=== PATIENT | female | born 1990 | race Caucasian/White ===

== ENCOUNTER 2017-05-22 11:06 | Outpatient (CLI) | payer BC ==
[~2017-05-22] VITALS: Ht 157.5 cm; Wt 73.9 kg
[2017-05-22 11:30] VITALS: BP 134/75
[2017-05-22 11:34] LABS: BASOPHILS # (AUTO) 0.1 10^3/uL (0.0-0.1); BASOPHILS % (AUTO) 1 % (0-10); EOSINOPHILS # (AUTO) 0.4 10^3/uL (0.0-0.3); EOSINOPHILS % (AUTO) 5 % (0-10); LYMPHOCYTES % (AUTO) 24 % (12-44); MEAN CORPUSCULAR HEMOGLOBIN 30 PG (25-34); MEAN CORPUSCULAR HGB CONC 33 G/DL (32-36); MEAN CORPUSCULAR VOLUME 91 FL (80-99); MEAN PLATELET VOLUME 9.2 FL (7.4-10.4); MONOCYTES # (AUTO) 0.6 X 10^3 (0.0-1.0); MONOCYTES % (AUTO) 8 % (0-12); NEUTROPHILS # (AUTO) 5.4 X 10^3 (1.8-7.8); NEUTROPHILS % (AUTO) 63 % (42-75); PLATELET COUNT 456 10^3/uL (130-400); RED BLOOD COUNT 4.01 10^6/uL (4.35-5.85); RED CELL DISTRIBUTION WIDTH 12.9 % (10.0-14.5); WHITE BLOOD COUNT 8.6 10^3/uL (4.3-11.0)
== END 2017-05-22 11:30 | disposition home or self-care (01) ==
LOC: PREOP 11:06
PROVIDERS: ATTEND Orthopaedic Surgery Orthopaedic Surgery of the Spine
DX: Z01.812 Encounter for preprocedural laboratory examination (principal); Z11.2 Encounter for screening for other bacterial diseases; M40.205 Unspecified kyphosis, thoracolumbar region
CPT/HCPCS: 36415; 85025; 86850; 86900; 86901; 87081

== ENCOUNTER 2017-05-27 07:30 | Inpatient (IN) | payer BC ==
[2017-05-27] VITALS (14 sets, daily range): BP systolic 89–124; BP diastolic 31–95
[~2017-05-27] VITALS: Ht 157.5 cm; Wt 73.9 kg
[2017-05-27] MEDS ORDERED: SEVOFLURANE (ULTANE) 15 ML INHAL SOLN ONE ×13 (07:52→15:34)
[2017-05-27] MEDS ORDERED: fentaNYL INJECTION 250 MCG/5 ML AMP ONE (07:52)
[2017-05-27] MEDS ORDERED: ONDANSETRON 4 MG/2 ML (SDV) Z0FRAN ONE ×4 (07:52→15:34)
[2017-05-27] MEDS ORDERED: DEXAMETHASONE 10 MG/ML (DECADRON) 1 ML VIAL ONE (07:52)
[2017-05-27] MEDS ORDERED: ROCURONIUM 50 MG/5 ML (ZEMURON) VIAL IV ONE ×2 (07:52→11:25)
[2017-05-27] MEDS ORDERED: proPOfol 200 MG/20 ML (DIPRIVAN) VIAL IV ONE (07:52)
[2017-05-27] MEDS ORDERED: MIDAZOLAM 2 MG/2 ML (VERSED) VIAL ONE (07:52)
[2017-05-27] MEDS ORDERED: DEXMEDETOMIDINE 200 MCG/2 ML (PRECEDEX) VIAL IV ONE ×2 (07:52→12:06)
[2017-05-27] MEDS ORDERED: LIDOCAINE PF 2% 5 ML (XYLOCAINE) VIAL ONE (07:52)
[2017-05-27] MEDS ORDERED: ceFAZolin 2 GM/NS 50 ML IV ONE (08:00)
[2017-05-27] MEDS ORDERED: VANCOMYCIN 1000 MG/VIAL ONE (08:15)
[2017-05-27] MEDS ORDERED: GENTAMICIN 40 MG/ML 2 ML INJ SDV ONE ×2 (08:16→10:11)
[2017-05-27] MEDS ORDERED: SCOPOLAMINE 1.5 MG (TRANSDERM-SCOP) PATCH ONE (08:17)
[2017-05-27] MEDS ORDERED: FAMOTIDINE 20MG/2ML IV (PEPCID) ONE (08:18)
[2017-05-27] MEDS ORDERED: LACTATED RINGERS 1,000 ML IV PRN (08:24)
[2017-05-27] MEDS: LACTATED RINGERS 1,000 ML IV PRN ×3 (08:25→14:35)
[2017-05-27] MEDS ORDERED: ONDANSETRON 4 MG/2 ML (SDV) Z0FRAN IV ONE (08:30)
[2017-05-27] MEDS ORDERED: FAMOTIDINE 20MG/2ML IV (PEPCID) IV ONE (08:30)
[2017-05-27] MEDS ORDERED: SCOPOLAMINE 1.5 MG (TRANSDERM-SCOP) PATCH TOP ONE (08:30)
[2017-05-27] MEDS ORDERED: GENTAMICIN IV SCH (10:45)
[2017-05-27] MEDS ORDERED: NS IV SCH (10:45)
[2017-05-27] MEDS ORDERED: GENTAMICIN INJ (FOR COMPOUND) 0.1 MG in NS (IVPB) 100 ML IV ONE (10:45)
[2017-05-27] MEDS ORDERED: GENTAMICIN 40 MG/ML 2 ML INJ SDV IR ONE ×2 (11:15)
[2017-05-27] MEDS ORDERED: TRANEXAMIC ACID 100 MG/ML 10 ML INJECTION IV ONE (11:25)
[2017-05-27] MEDS ORDERED: NS (IVPB) 100 ML ONE (11:26)
[2017-05-27] MEDS ORDERED: NS (IVPB) 250 ML ONE (11:26)
[2017-05-27] MEDS ORDERED: ceFAZolin 1,000 MG (ANCEF) VIAL ONE (13:26)
[2017-05-27] MEDS ORDERED: ceFAZolin 1,000 MG (ANCEF) VIAL IV ONE (13:45)
[2017-05-27] MEDS ORDERED: morphine INJ 10 MG/ML 1ML (SYR OR VIAL) ONE (14:31)
--- NOTE | 2017-05-27 15:08 | Progress Note-Post Operative ---
Post-Operative Progess Note Surgeon (s)/Human Resources Hr Generalist (s) Surgeon BLANCA NYE MD Human Resources Hr Generalist: DAMIÁN Plata Pre-Operative Diagnosis Kyhosis Post-Operative Diagnosis Same Procedure & Operative Findings Date of Procedure 05/27/17 Procedure Performed/Findings T4-L2 PSF with T10 PSO and reconstruction Anesthesia Type GETA Estimated Blood Loss Estimated blood loss (mL): 310 Specimens/Packing Specimens Removed none BLANCA NYE MD May 27, 2017 3:08 pm
[2017-05-27] MEDS: morphine INJ 10 MG/ML 1ML (SYR OR VIAL) IVP PRN ×5 (16:00→21:31)
[2017-05-27] MEDS ORDERED: ONDANSETRON 4 MG/2 ML (SDV) Z0FRAN IVP PRN (16:15)
[2017-05-27] MEDS ORDERED: fentaNYL INJECTION 100 MCG/2 ML AMP IVP PRN (16:15)
[2017-05-27] MEDS ORDERED: PROMETHAZINE INJ 25 MG/ML (PHENERGAN) AMP IVP PRN (16:15)
[2017-05-27] MEDS ORDERED: HYDROmorphone (DILAUDID) 2 MG/ML VIAL IVP PRN (16:15)
[2017-05-27] MEDS: HYDROcodone/APAP 10 MG/325 MG (LORTAB) TAB PO PRN ×2 (17:20→22:23)
[2017-05-27] MEDS: NS IV 1000 ML 1,000 ML IV SCH (17:21)
[2017-05-27] MEDS ORDERED: NS IV 500 ML 500 ML IV ONE (18:00)
[2017-05-27] MEDS ORDERED: NS IV 500 ML 500 ML IV PRN (19:00)
[2017-05-27] MEDS ORDERED: INFLUENZA TRIvalent 2017-2018 0.5 ML/45 MCG SYR IM ONE (19:30)
[2017-05-27] MEDS ORDERED: ceFAZolin INJECTION 2,000 MG in NS (IVPB) 50 ML IV SCH (19:45)
--- NOTE | 2017-05-27 20:04 | Diagnostic Imaging Report ---
Clinical indication: Dr. Argueta performed T9 pedicle subtracter osteotomy with T4-L1 posterior spinal fusion. Exam: There is a total of 11 limited intraoperative x-ray images of the thoracolumbar spine region. Comparison: None. Findings and impression: There is posterior fusion hardware with bilateral spanning rods and pedicle screws spanning from the thoracic and upper lumbar region. There are degenerative vertebral body spurs. Please see surgeon's report for more detail. Fluoroscopy was provided for surgeons and a total of 46.2 seconds and 8.30 mGy was provided. Dictated by: Dictated on workstation # [id number]
[2017-05-27] MEDS: ceFAZolin 2 GM/NS 50 ML IV SCH (21:32)
[2017-05-27] MEDS: FAMOTIDINE 20 MG (PEPCID) TABLET PO SCH (21:37)
[2017-05-27] MEDS: DOCUSATE SODIUM 100 MG (COLACE) CAP PO SCH (21:37)
[2017-05-27] MEDS: BACITRACIN OINTMENT 28 GM TUBE TOP SCH (22:28)
[2017-05-28] VITALS (23 sets, daily range): BP systolic 92–125; BP diastolic 46–79
[2017-05-28] MEDS: morphine INJ 10 MG/ML 1ML (SYR OR VIAL) IVP PRN ×8 (00:37→20:23)
--- NOTE | 2017-05-28 01:43 | OPERATIVE REPORT ---
DATE OF SERVICE: 05/27/2017 PREOPERATIVE DIAGNOSIS: Progressive thoracic hyperkyphosis, sagittal involvement and Scheuermann's disease. POSTOPERATIVE DIAGNOSIS: Progressive thoracic hyperkyphosis, sagittal involvement and Scheuermann's disease. PROCEDURE PERFORMED: 1. Thoracic 4 to lumbar 2 posterior spinal fusion for deformity. 2. T10 pedicle subtraction osteotomy, 3-column osteotomy. 3. T4 to L2 posterior segmental pedicle screw instrumentation. 4. Autograft for spine surgery, local. 5. Allograft for spine surgery, morselized. DATE AND TIME OF SURGERY: Please see anesthesia record. IMPLANTS USED: K2M SARAH pedicle screw system with renata and rail construct, Medtronic MagniFuse bone graft. SURGEON: Blanca Argueta MD TRIMMER BUFFING WHEEL: AMINAH Plata ROLE OF BIODIESEL PROCESS CONTROL TECHNICIAN: Aid in retraction of the procedure, aid in implantation, instrumentation and wound closure. ANESTHESIA: General endotracheal. ESTIMATED BLOOD LOSS: 310 mL. INTRAVENOUS FLUIDS: Please see anesthesia record. ANTIBIOTICS: Ancef in repeated doses. COMPLICATIONS: None. SPECIMENS: None. INDICATIONS FOR PROCEDURE: The patient is a 27-year-old female with severe progressive thoracic kyphosis, pain, failed conservative therapy, desires operative treatment. DESCRIPTION OF PROCEDURE: The patient was taken to the preoperative holding area and brought back to the operative suite. After adequate induction of general anesthetic, preoperative antibiotics, placed on spinal monitoring. Carefully returned to prone on Harsh table, care with padding to all extremities, sterilely prepped and draped posterior spine. Spinal monitoring was performed throughout the procedure and stable. Initially, a T4-L1 with a T9 PSO was planned, but upon positioning, placement and visualization of the patient, the levels, her apex of her curve, it was felt that moving the PSO down one level to T10 would give a better correction and therefore the inferior instrumented level was moved down one level as well as the PSO. At this point, a full exposure from T4 to L2 had been performed, levels were confirmed and then instrumentation was placed sequentially at every level starting at L2 all the way up to T4 bypassing T10. Once all the instrumentation was in place, checked on imaging, neuromonitoring was stable, a temporary fixation renata was achieved. The posterior elements were removed and freed up at the upper and lower levels to allow for correction of her kyphosis and then at the T10 level, a complete 3-column wedge osteotomy removing the entire pedicle bilaterally and into the vertebral body was carried out. The bilateral temporary fixation rods were reduced and compression across the site allowing sufficient buckling of the dura and preventing any compression, which was monitored as the osteotomy is closed. [id number] contact of the posterior vertebral body was achieved and the right renata was switched out for a rail renata, which was only minimally kyphosed and put into place and then the temporary renata on the left was switched out for a titanium round renata and once it was in place, final locking and tightening of the construct was performed. Further compression and closure of the osteotomy site was achieved and a great overall reduction was achieved. Wound was copiously irrigated with pulse lavage irrigation was utilized with protection of the osteotomy site. Neuromonitoring stable throughout the procedure and then all the posterior elements were decorticated and then a combination of autograft local bone from the osteotomy site and the decompressions autograft bone dust from all of the procedure was packed initially posteriorly and posterolaterally and then MagniFuse bone was packed on tip of this and then a third titanium renata with a renata-to-renata connector was placed on the left side for additional support fixation with [address] Deep drain was placed. Wound was closed in layers. Neuromonitoring stable. The patient tolerated the procedure well and transferred to the recovery room. Job ID: [id number] DocumentID: [id number] Dictated Date: 05/27/2017 15:13:52 After School Program Teacher Date: 05/28/2017 00:59:51 Dictated By: BLANCA ARGUETA MD
[2017-05-28] MEDS: HYDROcodone/APAP 10 MG/325 MG (LORTAB) TAB PO PRN (02:11)
[2017-05-28] MEDS: ceFAZolin 2 GM/NS 50 ML IV SCH ×2 (04:21→12:03)
[2017-05-28] MEDS: NS IV 1000 ML 1,000 ML IV SCH ×2 (04:26→12:03)
[2017-05-28 05:08] LABS: BASOPHILS % (AUTO) 0 % (0-10); EOSINOPHILS % (AUTO) 0 % (0-10); LYMPHOCYTES % (AUTO) 8 % (12-44); MEAN CORPUSCULAR HEMOGLOBIN 30 PG (25-34); MEAN CORPUSCULAR HGB CONC 33 G/DL (32-36); MEAN CORPUSCULAR VOLUME 93 FL (80-99); MEAN PLATELET VOLUME 9.3 FL (7.4-10.4); MONOCYTES % (AUTO) 9 % (0-12); NEUTROPHILS # (AUTO) 19.8 X 10^3 (1.8-7.8); NEUTROPHILS % (AUTO) 83 % (42-75); PLATELET COUNT 436 10^3/uL (130-400); RED BLOOD COUNT 3.46 10^6/uL (4.35-5.85); RED CELL DISTRIBUTION WIDTH 12.8 % (10.0-14.5); WHITE BLOOD COUNT 23.8 10^3/uL (4.3-11.0)
[2017-05-28 05:28] LABS: ALANINE AMINOTRANSFERASE 17 U/L (0-55); ALBUMIN 3.3 GM/DL (3.2-4.5); ANION GAP 8 MMOL/L (5-14); ASPARTATE AMINO TRANSFERASE 36 U/L (5-34); BILIRUBIN,TOTAL 0.7 MG/DL (0.1-1.0); BLOOD UREA NITROGEN 8 MG/DL (7-18); BUN/CREATININE RATIO 12; CARBON DIOXIDE 23 MMOL/L (21-32); CHLORIDE 107 MMOL/L (98-107); CREATININE SERUM 0.67 MG/DL (0.60-1.30); GFR ESTIMATED > 60; GLUCOSE 103 MG/DL (70-105); MAGNESIUM 1.7 MG/DL (1.8-2.4); PHOSPHORUS 3.4 MG/DL (2.3-4.7); SODIUM 138 MMOL/L (135-145); TOTAL PROTEIN 5.8 GM/DL (6.4-8.2)
[2017-05-28] MEDS: POTASSIUM CL 10MEQ/50ML IVPB 50 ML IV SCH (06:00)
[2017-05-28] MEDS: MAGNESIUM 1 GM/100 ML IVPB 100 ML IV SCH ×3 (06:00→08:47)
[2017-05-28] MEDS: KCL 20 MEQ TAB (K-DUR) PO SCH (06:00)
--- NOTE | 2017-05-28 06:37 | Progress Note (SOAP) ---
Subjective Date Seen by Provider: May 28, 2017 Time Seen by Provider: 06:34 Subjective/Events-last exam Doing ok, pain control not lasting, gets uncomfortable. Legs ok, no other real complaints. present. Objective Exam Vital Signs Date Time Temp Pulse Resp B/P (MAP) Pulse Ox O2 Delivery O2 Flow Rate FiO2 05/28/17 04:00 96.8 67 11 102/51 (68) 100 Nasal Cannula 2.00 05/28/17 04:00 100 Nasal Cannula 2.00 05/28/17 03:00 74 12 101/58 (72) 100 Nasal Cannula 2.00 05/28/17 02:00 73 12 99/57 (71) 100 Nasal Cannula 2.00 05/28/17 01:00 73 11 100/49 (66) 100 Nasal Cannula 2.00 05/28/17 01:00 73 05/28/17 00:00 99.1 80 11 116/60 (78) 100 Nasal Cannula 2.00 05/28/17 00:00 100 Nasal Cannula 2.00 05/27/17 23:00 71 12 107/56 (73) 100 Nasal Cannula 2.00 05/27/17 22:00 64 11 115/56 (75) 100 Nasal Cannula 2.00 05/27/17 21:22 76 05/27/17 21:00 95 24 114/75 (88) 100 Nasal Cannula 2.00 05/27/17 20:00 100 Nasal Cannula 2.00 05/27/17 20:00 99.7 73 20 93/68 (76) 100 Nasal Cannula 2.00 05/27/17 19:00 76 12 102/58 (73) 100 Nasal Cannula 2.00 05/27/17 18:45 Nasal Cannula 2.00 05/27/17 18:30 53 13 103/58 (73) 100 OxyMask 10.00 05/27/17 18:00 55 7 104/84 (91) 100 OxyMask 10.00 05/27/17 17:45 55 15 89/65 (73) 100 OxyMask 10.00 05/27/17 17:30 66 16 100/31 (54) 100 OxyMask 10.00 05/27/17 17:15 83 16 95/46 (62) 100 OxyMask 10.00 05/27/17 17:01 93/50 (64) 05/27/17 17:00 63 11 89/65 (73) 100 OxyMask 10.00 05/27/17 16:45 OxyMask 10.00 05/27/17 16:40 58 14 106/95 (99) 100 OxyMask 10.00 05/27/17 08:36 98.7 89 18 124/74 (91) 100 Room Air I & O 05/28/17 07:00 Intake Total 3643 ml Output Total 1285 ml Balance 2358 ml Capillary Refill : General Appearance: Mild Distress HEENT: Moist Mucous Membranes Neck: Non Tender, Supple Respiratory: No Accessory Muscle Use, No Respiratory Distress Cardiovascular: Regular Rate, Rhythm, Normal Peripheral Pulses Gastrointestinal: non tender, soft Extremity: Normal Capillary Refill, Normal Inspection, No Calf Tenderness Neurologic/Psychiatric: Alert, Oriented x3, No Motor/Sensory Deficits Skin: Normal Color, Warm/Dry Other comments CXR Clear this am Results Lab Laboratory Tests 05/27/17 07:45: Urine Test NEGATIVE 05/28/17 04:30: White Blood Count 23.8H, Red Blood Count 3.46L, Hemoglobin 10.5L, Hematocrit 32L , Mean Corpuscular Volume 93, Mean Corpuscular Hemoglobin 30, Mean Corpuscular Hemoglobin Concent 33, Red Cell Distribution Width 12.8, Platelet Count 436H, Mean Platelet Volume 9.3, Neutrophils (%) (Auto) 83H, Lymphocytes (%) (Auto) 8L , Monocytes (%) (Auto) 9, Eosinophils (%) (Auto) 0, Basophils (%) (Auto) 0, Neutrophils # (Auto) 19.8H, Lymphocytes # (Auto) 2.0, Monocytes # (Auto) 2.0H, Eosinophils # (Auto) 0.0, Basophils # (Auto) 0.0, Sodium Level 138, Potassium Level 4.0, Chloride Level 107, Carbon Dioxide Level 23, Anion Gap 8, Blood Urea Nitrogen 8, Creatinine 0.67, Estimat Glomerular Filtration Rate > 60, BUN/ Creatinine Ratio 12, Glucose Level 103, Calcium Level 8.0L, Phosphorus Level 3.4 , Magnesium Level 1.7L, Total Bilirubin 0.7, Aspartate Amino Transf (AST/SGOT) 36H, Alanine Aminotransferase (ALT/SGPT) 17, Alkaline Phosphatase 26L, Total Protein 5.8L, Albumin 3.3 Assessment/Plan Assessment/Plan Assess & Plan/Chief Complaint Thoracic Hyperkyphosis Scheruman's kyphosis Hypomagnesemia Plan: Up with PT Pain control Replace Mg To Floor today Clinical Quality Measures DVT/VTE Risk/Contraindication: Risk Factor Score Per Nursin RFS Level Per Nursing on Admit: 4+=Very High BLANCA NYE MD May 28, 2017 06:37
[2017-05-28] MEDS: MULTIVIT W/MINERALS TAB (THERAGRAN M) PO SCH (07:19)
[2017-05-28] MEDS: FAMOTIDINE 20 MG (PEPCID) TABLET PO SCH ×2 (08:01→20:22)
[2017-05-28] MEDS: DOCUSATE SODIUM 100 MG (COLACE) CAP PO SCH ×2 (08:01→21:22)
[2017-05-28] MEDS: DIAZEPAM 5 MG (VALIUM) TABLET PO PRN ×2 (08:01→16:08)
[2017-05-28] MEDS: oxyCODONE/APAP 10/325MG (PERCOCET 10) TABLET PO PRN ×3 (08:01→16:08)
[2017-05-28] MEDS: ONDANSETRON 4 MG/2 ML (SDV) Z0FRAN IV PRN ×2 (09:21→14:05)
--- NOTE | 2017-05-28 09:22 | Diagnostic Imaging Report ---
EXAMINATION: Portable upright radiograph of the chest. INDICATION: Post surgery for kyphosis. FINDINGS: There is posterior fixation with transpedicular screws and connecting rods involving the levels from T4 to L2. There is no scoliosis identified. The heart size is normal. The lungs are clear. No effusion or pneumothorax. The mediastinum and sumi appear unremarkable. IMPRESSION: Posterior fusion hardware appearing to involve the T4 to L2 levels. No cardiopulmonary process. Dictated by: Dictated on workstation # [id number]
--- NOTE | 2017-05-28 09:29 | Physical Therapy Evaluation ---
PT Evaluation-General Medical Diagnosis Admission Date May 27, 2017 at 07:40 Medical Diagnosis: s/p T4-L1 fusion; kyphotic correction Onset Date: May 27, 2017 Therapy Diagnosis Therapy Diagnosis: debility Height/Weight Height (Feet): 5 Height (Inches): 2.00 Weight (Pounds): 163 Weight (Ounces): 0.0 Precautions Precautions/Isolations: Fall Prevention, Standard Precautions Weight Bear Status Right Lower Extremity: Right Weight Bearing/Tolerated Left Lower Extremity: Left Weight Bearing/Tolerated Referral Reason for Referral: Evaluation/Treatment Medical History Reviewed History: Yes Social History Patient lives in home with supportive . Prior/Core FIM Prior Level of Function Functional Campbell Measure 0=Not Assessed/NA 4=Minimal Assistance 1=Total Assistance 5=Supervision or Setup 2=Maximal Assistance 6=Modified Campbell 3=Moderate Assistance 7=Complete Campbell Bed Mobility: 7 Transfers (B,C,W/C) (FIM): 7 Gait: 7 Locomotion: 7 PT Evaluation-Current Subjective Patient is alert in bed upon PT entering the room. Patient reports significant pain s/p T4-L1 fusion surgery yesterday. Patient complains of significant headaches and nausea with inset right before PT entered the room. Patient agrees to transferring to the chair from the bed. Pain Numeric Pain Scale: 10-Worst Possible Pain Location Body Site: Back Pain Description: Acute Comment: Pain rating determined by patient expression Pt/Family Goals Patient wishes to return to normal function. Objective Patient Orientation: Normal For Age Problem Solving: Good Attachments: Oxygen, Carballo Catheter, IV 2.0 L of O2 ROM/Strength ROM Upper Extremities WNL ROM Lower Extremities WNL Strength Upper Extremities not assessed due to pain s/p back surgery Strength Lower Extremities not assessed due to pain s/p back surgery Integumentary/Posture Integumentary intact Bowel Incontinence: No Bladder Incontinence: Carballo Cath Posture kyphotic posture seems to have significant corrections when compared to status before surgery Neuromuscular (Tone, Coordination, Reflexes) normal Sensory Vision: Wears Glasses Hearing: Functional Sensation Right Upper Extremit: Intact Sensation Left Upper Extremity: Intact Sensation Right Lower Extremit: Intact Sensation Left Lower Extremity: Intact Transfers Functional [place] Measure 0=Not Assessed/NA 4=Minimal Assistance 1=Total Assistance 5=Supervision or Setup 2=Maximal Assistance 6=Modified [place] 3=Moderate Assistance 7=Complete Campbell Transfers (B, C, W/C) (FIM): 3 Scootin Supine to/from Sit: 3 Sit to/from Stand: 4 Patient required close CGA to mod assist with bed mobility. Mod assist required with turning when rising to sit. Gait Mode of Locomotion: Walk Anticipated Mode of Locomotion: Walk Gait (FIM): 1 Distance (FIM): 1=up to 49 ft Distance: 5' Gait Level of Assist: 5 Gait Assistive Device: FWW Balance Sitting Static: Normal Sitting Dynamic: Normal Standing Static: Normal Standing Dynamic: Fair Assessment/Needs Patient transferred from bed to chair well considering recent spinal fusion. PT will continue to work on transfers, education, and proceed to increase in gait interventions as patient pain tolerance allows. Rehab Potential: Good PT Retirement Goals Java Groovy Developer Goals PT Retirement Goals Time Frame: Jun 14, 2017 Transfers (B,C,W/C) (FIM): 4 Gait (FIM): 3 Gait distance (FIM): 3=150 ft Distance: 150' Gait Level of Assist: 5 Gait Assistive Device: FWW PT Plan Problem List Problem List: Activity Tolerance, Functional Strength, Safety, Balance, Gait, Transfer, Bed Mobility, ROM Treatment/Plan Treatment Plan: Continue Plan of Care Treatment Plan: Bed Mobility, Education, Functional Activity Teodora, Functional Strength, Gait, Safety, Therapeutic Exercise, Transfers Treatment Duration: Jun 14, 2017 Frequency: 11 times per week Estimated Hrs Per Day: .5 hour per day Patient and/or Family Agrees t: Yes Safety Risks/Education Patient Education: Gait Training, Transfer Techniques, Reviewed Precautions, Correct Positioning, Safety Issues Teaching Recipient: Patient Teaching Methods: Demonstration, Discussion Response to Teaching: Verbalize Understanding, Return Demonstration Discharge Recommendations Therapy D/C Recommendations: Home w/ Family Support Equpiment Recommendations-D/C: Front Wheeled Walker Time/GCodes Time In: 900 Time Out: 915 Total Billed Treatment Time: 15 Total Billed Treatment 1 visit EVHigh 15 min CORINE JOSHUA PT May 28, 2017 09:29
--- NOTE | 2017-05-28 11:13 | Occupational Therapy Eval ---
OT Evaluation-General/PLF Medical Diagnosis Admission Date May 27, 2017 at 07:40 Medical Diagnosis: s/p T4-L1 fusion; kyphotic correction Onset Date: May 27, 2017 Therapy Diagnosis Therapy Diagnosis: decr self care, decr funct mobility, decr act harris Height/Weight Height (Feet): 5 Height (Inches): 2.00 Weight (Pounds): 163 Weight (Ounces): 0.0 Precautions Precautions/Isolations: Fall Prevention, Standard Precautions Safety Interventions: None Referral Physician: janel cruz Referral Reason: Evaluation/Treatment Medical History Additional Medical History Asthma as a child, R knee surgery x 3, GI disorders, Scheuermann's disease Current History T4-L2 PSF with ENRIQUETA, PSO and reconstruction Reviewed History: Yes Social History Current Living Status: Spouse ADL-Prior Level of Function ADL PLOF Comments Pt reported that she was able to manage all of her basic self care needs prior to surgery. 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 She still drives. 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 Pt rated back pain 6/10 but did not describe pain. Said that raising her ams increased back pain Appearance Alert, cooperative Mental Status/Objective Attachments: Central Line, Carballo Catheter, IV, Oxygen, Telemetry Current Glasses/Contacts: Yes Upper Extremity ROM Did not test due to pt reports of increased pain with arm movements. Bilat arms were resting on pillows Upper Extremity Sensation Pt reported she had some problems with numbness in R hand but it has not been a problem since surgery Upper Extremity Strength Did not test due to pt report of pain from moving arms ADL-Treatment ADL-Current Pt reported she has been able to feed herself. Up out of bed for first time this morning. Pt reported that she will be getting fitted for back brace today. Functional [place] Measure 0=Not Assessed/NA 4=Minimal Assistance 1=Total Assistance 5=Supervision or Setup 2=Maximal Assistance 6=Modified [place] 3=Moderate Assistance 7=Complete IndependenceIRFPAI Quality Coding Scale 6 Independent with activity with or without an assistive device 5 Patient requires set up or clean up by helper. Patient completes activity by themselves 4 Supervision or touching assist (CGA). [place] provide cues , steadying assist 3 The helper provides less than half the effort to complete the activity 2 The helper provides more than half the effort to complete the activity 1 Dependent. The helper does all the effort to complete an activity 7 Patient refused to complete or attempt activity 9 The patient did not perform the activity before the current illness or injury 88 Not attempted due to Medical conditions or safety concerns Discussed benefits of using bedside commode, chairs with arms, shower bench/ chair with pt and her Education OT Patient Education: Purpose of tx/functional activities, Rehab process, Use of adapted equipment Teaching Recipient: Patient, Significant Other Teaching Methods: Discussion Response to Teaching: Verbalize Understanding OT Retirement Goals Auto Hiker Goals Time Frame: Jun 04, 2017 Eating (FIM): 7 Grooming(FIM): 6 Bathing(FIM): 5 Upper Body Dressing(FIM): 5 Lower Body Dressing(FIM): 5 Toileting(FIM): 6 Toilet/Commode Transfer(FIM): 6 Shower Transfer(FIM): 5 Additional Goals: 1-Demonstrate ADL Tasks, 2-Verbalize Understanding, 3- ImproveStrength/Teodora 1=Demonstrate adherence to instructed precautions during ADL tasks. 2=Patient will verbalize/demonstrate understanding of assistive devices/ modifications for ADL. 3=Patient will improve strength/tolerance for activity to enable patient to perform ADL's. OT Education/Plan Problem List/Assessment Assessment: Decreased Activ Tolerance, Dependent Transfers, Impaired Bed Mobility, Impaired Self-Care Skills, Restricted Funct UE ROM Pt would benefit from skilled OT to increase her independence in basic self care to allow her to safely return to her home and to decrease caregiver burden Discharge Recommendations Plan/Recommendations: Continue POC Treatment Plan/Plan of Care Treatment,Training & Education: Yes Patient would benefit from OT for education, treatment and training to promote independence in ADL's, mobility, safety and/or upper extremity function for ADL' s. Plan of Care: ADL Retraining, Functional Mobility, UE Funct Exercise/Act Treatment Duration: Jun 04, 2017 Frequency: 5 times per week Estimated Hrs Per Day: .5 hour per day Agreement: Yes Rehab Potential: Good Time/GCodes Start Time: 10:35 Stop Time: 10:50 Total Time Billed (hr/min): 15 Billed Treatment Time visit, 15 minutes evaluation moderate intensity MAIRON MI OT May 28, 2017 11:13
[2017-05-28] MEDS: PROMETHAZINE 25 MG (PHENERGAN) TAB PO PRN (12:02)
[2017-05-28] MEDS: oxyCODONE ER 15 MG (oxyCONTIN CR) TAB PO SCH ×2 (14:05→21:22)
--- NOTE | 2017-05-28 14:06 | Anesthesia-General Post-Op ---
General Patient Condition Mental Status/LOC: Same as Preop Cardiovascular: Satisfactory Nausea/Vomiting: Absent Respiratory: Satisfactory Pain: Controlled Complications: Absent Post Op Complications Complications None Follow Up Care/Instructions Patient Instructions None needed. Anesthesia/Patient Condition Patient Condition Patient is doing well, no complaints, stable vital signs, no apparent adverse anesthesia problems. No complications reported per nursing. TOMY MCKEON CRNA May 28, 2017 14:06
--- NOTE | 2017-05-28 14:08 | Physical Therapy Daily Note ---
PT Daily Note-Current Subjective Patient reports she sat in the chair for a couple hours this a.m. and it has felt better off and on. She reports some bouts of nausea and dizziness. She states she is pretty sore, but is very agreeable to attempting to walk this p.m. Pain Numeric Pain Scale: 7 Location Body Site: Back Appearance Patient appears healthy. She is left with nurse seated in W/C post tx. Mental Status Patient Orientation: Normal For Age Attachments: Carballo Catheter, IV Transfers Functional [place] Measure 0=Not Assessed/NA 4=Minimal Assistance 1=Total Assistance 5=Supervision or Setup 2=Maximal Assistance 6=Modified [place] 3=Moderate Assistance 7=Complete IndependenceIRFPAI Quality Coding Scale 6 Independent with activity with or without an assistive device 5 Patient requires set up or clean up by helper. Patient completes activity by themselves 4 Supervision or touching assist (CGA). [place] provide cues , steadying assist 3 The helper provides less than half the effort to complete the activity 2 The helper provides more than half the effort to complete the activity 1 Dependent. The helper does all the effort to complete an activity 7 Patient refused to complete or attempt activity 9 The patient did not perform the activity before the current illness or injury 88 Not attempted due to Medical conditions or safety concerns Transfers (B, C, W/C) (FIM): 5 Scootin Rollin Supine to/from Sit: 5 Sit to/from Stand: 5 Patient was able to perform all bed mobility with SBA from PT. Patient is wearing a TLSO brace which she reports makes her feel much more stable. Weight Bearing Right Lower Extremity: Right Weight Bearing/Tolerated Left Lower Extremity: Left Weight Bearing/Tolerated Gait Training Gait (FIM): 1 Distance (FIM): 1=up to 49 ft Distance: 40' Gait Level of Assist: 4 Gait Persons Needed: 1 Gait Assistive Device: FWW Patient ambulates slowly with FWW. She takes intermittent stops due to pain and nausea with ambulation. Pt is CGA for safety due to patient's first time walking s/p back fusion. Assessment Current Status: Good Progress Patient is very agreeable to therapy on this date. She seems motivated to stand up and start ambulation again. PT will continue to progress walking and transfer techniques as well as implement therapeutic exercise that is applicable to this patient per her tolerance. PT Media Relations Intern Goals Media Relations Intern Goals PT Media Relations Intern Goals Time Frame: Jun 14, 2017 Transfers (B,C,W/C) (FIM): 4 Gait (FIM): 3 Gait distance (FIM): 3=150 ft Distance: 150' Gait Level of Assist: 5 Gait Assistive Device: FWW PT Plan Problem List Problem List: Activity Tolerance, Functional Strength, Safety, Balance, Gait, Transfer, Bed Mobility Treatment/Plan Treatment Plan: Continue Plan of Care Treatment Plan: Bed Mobility, Education, Functional Activity Teodora, Functional Strength, Gait, Safety, Therapeutic Exercise, Transfers Treatment Duration: Jun 14, 2017 Frequency: 11 times per week Estimated Hrs Per Day: .5 hour per day Patient and/or Family Agrees t: Yes Discharge Recommendations Therapy D/C Recommendations: Home w/ Family Support Equpiment Recommendations-D/C: Front Wheeled Walker Time/GCodes Time In: 1332 Time Out: 1350 Total Billed Treatment Time: 18 Total Billed Treatment 1 visit GT 18 min CORINE JOSHUA PT May 28, 2017 14:08
--- NOTE | 2017-05-28 14:40 | Consultation-Hospitalist ---
HPI History of Present Illness: HPI/Chief Complaint Pt is a 27yoCF with no past medical history who was admitted for spinal fusion for kyphosis. We are consulted for medical management following surgery. She reports pain from her surgery but controlled with pain medicine. She is up in chair at time of bed. She developed a headache with sitting up but improved with pain medicine. She has no complaints at this time. Source: patient Date Seen 05/28/17 Attending Physician Enrique Argueta MD PCP Ron London DO Referring Physician Kendall Date of Admission May 27, 2017 at 07:40 Home Medications & Allergies Home Medications Reviewed patient Home Medication Reconciliation Form Allergies Allergies Coded Allergies No Known Drug Allergies (Zlndpfwpcr04/29/17) Past Tsvmicm-Ymbjcp-Ohscbv Hx Patient Social History Marrital Status: Alcohol Use: Occasionally Uses Recreational Drug Use: No Smoking Status: Former Smoker Former Smoker, Quit: May 22, 2009 Type Used: Cigarettes Physical Abuse Screen: No Sexual Abuse: No Recent Foreign Travel: No Contact w/other who traveled: No Recent Hopitalizations: No Recent Infectious Disease Expo: No Seasonal Allergies Seasonal Allergies: Yes (at times) Surgeries Yes (c/s x3, rt knee sx x3) Section (x3) Respiratory Yes (asthma as a child) Cardiovascular No Neurological No Reproductive System : No Genitourinary No Gastrointestinal Yes Chronic Constipation Musculoskeletal Yes (kyphosis) Chronic Back Pain Endocrine History of Endocrine Disorders: No HEENT History of HEENT Disorders: Yes (glasses) Loss of Vision: Bilateral Hearing Impairment: Denies Cancer No Psychosocial History of Psychiatric Problem: No Integumentary History of Skin or Integumenta: No Blood Transfusions History of Blood Disorders: Yes (anemic during ) Family Medical History Significant Family History: No Pertinent Family Hx Family Hx: Patient reports no known family medical history. Review of Systems Constitutional: No chills, No fever EENTM: No blurred vision, No double vision, No nose congestion, No throat pain Respiratory: No cough, No dyspnea on exertion, No short of breath Cardiovascular: No chest pain, No edema, No palpitations Gastrointestinal: No abdominal pain, No constipation, No diarrhea, No nausea, No vomiting Genitourinary: No dysuria, No frequency Musculoskeletal: No joint pain, No muscle pain Skin: No lesions, No rash Psychiatric/Neurological: Denies Headache, Denies Numbness, Denies Tingling Physical Exam Physical Exam Vital Signs Vital Sign - Last 12Hours 05/27/17 05/27/17 08:36 16:40 Temp 98.7 Pulse 89 Resp 18 B/P (MAP) 124/74 (91) Pulse Ox 100 O2 Delivery Room Air O2 Flow Rate 10.00 Capillary Refill : General Appearance: No Apparent Distress, WD/WN HEENT: PERRL/EOMI, Moist Mucous Membranes Neck: Non Tender, Supple Respiratory: Lungs Clear, No Respiratory Distress Cardiovascular: No Murmur, Tachycardia Gastrointestinal: Normal Bowel Sounds, Non Tender, Soft Extremity: Normal Capillary Refill, No Calf Tenderness Neurologic/Psychiatric: Alert, Oriented x3, Normal Mood/Affect Skin: Normal Color, Warm/Dry Results Results/Procedures Lab Laboratory Tests 05/28/17 04:30 Assessment/Plan Admission Diagnosis s/p spinal fusion Diagnosis/Problems Diagnosis/Problems (1) Kyphosis Status: Chronic Assessment & Plan: s/p spinal fusion Management per Primary PT/OT Qualifiers: Qualified Codes: M40.209 - Unspecified kyphosis, site unspecified (2) Leukocytosis Status: Acute Assessment & Plan: Likely due to surgery No signs of infection Received prophylactic ancef Monitor closely (3) Normocytic anemia Assessment & Plan: likely due to acute blood loss form surgery Trend (4) Prophylactic measure Assessment & Plan: Saline lock Reg diet SCDS - lovenox when ok with primary Clinical Quality Measures DVT/VTE Risk/Contraindication: Risk Factor Score Per Nursin RFS Level Per Nursing on Admit: 4+=Very High ILDEFONSO DOW MD May 28, 2017 14:40
[2017-05-28] MEDS: BACITRACIN OINTMENT 28 GM TUBE TOP SCH ×2 (15:17→21:22)
--- NOTE | 2017-05-28 16:04 | Diagnostic Imaging Report ---
Exam: Standing scoliosis radiographs. Indication: Post infusion. Findings: There is transpedicular fusion screws with connecting rods seen involving T4 to L2 level with no remaining scoliosis seen. There is wedging deformity noted of multiple mid to lower thoracic spine levels, probably developmental. The paraspinal soft tissues appear unremarkable. Impression: Posterior fusion hardware involving T4 to L2 levels, in good alignment. No residual scoliosis. Dictated by: Dictated on workstation # [id number]
[2017-05-28] MEDS: BISACODYL 5 MG (DULCOLAX) TABLET PO PRN (20:26)
[2017-05-29] VITALS (22 sets, daily range): BP systolic 91–120; BP diastolic 42–89
[2017-05-29] MEDS: oxyCODONE/APAP 10/325MG (PERCOCET 10) TABLET PO PRN ×4 (00:02→15:06)
[2017-05-29] MEDS: DIAZEPAM 5 MG (VALIUM) TABLET PO PRN ×3 (00:02→16:21)
[2017-05-29] MEDS: morphine INJ 10 MG/ML 1ML (SYR OR VIAL) IVP PRN ×4 (04:31→16:21)
[2017-05-29 05:08] LABS: BASOPHILS # (AUTO) 0.1 10^3/uL (0.0-0.1); BASOPHILS % (AUTO) 0 % (0-10); EOSINOPHILS # (AUTO) 0.1 10^3/uL (0.0-0.3); EOSINOPHILS % (AUTO) 1 % (0-10); LYMPHOCYTES # (AUTO) 1.9 X 10^3 (1.0-4.0); LYMPHOCYTES % (AUTO) 9 % (12-44); MEAN CORPUSCULAR HEMOGLOBIN 30 PG (25-34); MEAN CORPUSCULAR HGB CONC 33 G/DL (32-36); MEAN CORPUSCULAR VOLUME 92 FL (80-99); MEAN PLATELET VOLUME 9.4 FL (7.4-10.4); MONOCYTES # (AUTO) 1.8 X 10^3 (0.0-1.0); MONOCYTES % (AUTO) 9 % (0-12); NEUTROPHILS # (AUTO) 16.5 X 10^3 (1.8-7.8); NEUTROPHILS % (AUTO) 81 % (42-75); PLATELET COUNT 412 10^3/uL (130-400); RED BLOOD COUNT 3.57 10^6/uL (4.35-5.85); RED CELL DISTRIBUTION WIDTH 13.1 % (10.0-14.5); WHITE BLOOD COUNT 20.4 10^3/uL (4.3-11.0)
[2017-05-29 05:26] LABS: ALANINE AMINOTRANSFERASE 24 U/L (0-55); ALBUMIN 3.3 GM/DL (3.2-4.5); ANION GAP 7 MMOL/L (5-14); ASPARTATE AMINO TRANSFERASE 43 U/L (5-34); BILIRUBIN,TOTAL 0.6 MG/DL (0.1-1.0); BLOOD UREA NITROGEN 4 MG/DL (7-18); BUN/CREATININE RATIO 6; CALCIUM 8.3 MG/DL (8.5-10.1); CARBON DIOXIDE 26 MMOL/L (21-32); CHLORIDE 105 MMOL/L (98-107); CREATININE SERUM 0.64 MG/DL (0.60-1.30); GFR ESTIMATED > 60; GLUCOSE 113 MG/DL (70-105); MAGNESIUM 2.1 MG/DL (1.8-2.4); POTASSIUM 3.9 MMOL/L (3.6-5.0); SODIUM 138 MMOL/L (135-145); TOTAL PROTEIN 6.3 GM/DL (6.4-8.2)
--- NOTE | 2017-05-29 06:01 | Progress Note (SOAP) ---
Subjective Date Seen by Provider: May 29, 2017 Time Seen by Provider: 05:58 Subjective/Events-last exam POD #2, s/p T4-L2 PSF with T10 PSO VSS, afebrile Complains of back pain. Review of Systems General: No Chills, No Fatigue Pulmonary: No Dyspnea, No Cough Cardiovascular: No: Chest Pain Gastrointestinal: No: Nausea, Vomiting, Abdominal Pain Musculoskeletal: back pain, No: leg pain Neurological: No: Weakness, Numbness, Confusion Objective Exam Vital Signs Date Time Temp Pulse Resp B/P (MAP) Pulse Ox O2 Delivery O2 Flow Rate FiO2 05/29/17 05:00 103 107/65 (79) 100 Nasal Cannula 2.00 05/29/17 04:00 99.2 98 116/59 (78) 100 Nasal Cannula 2.00 05/29/17 03:00 100 110/57 (74) 100 Nasal Cannula 2.00 05/29/17 02:00 105 96/64 (75) 99 Nasal Cannula 2.00 05/29/17 01:00 97 05/29/17 01:00 97 120/58 (78) 99 Nasal Cannula 2.00 05/29/17 00:00 100.3 111 114/69 (84) 100 Nasal Cannula 2.00 05/28/17 23:00 91 102/58 (73) 100 Nasal Cannula 2.00 05/28/17 22:00 93 117/72 (87) 100 Nasal Cannula 2.00 05/28/17 21:00 Room Air 05/28/17 21:00 106 99/51 (67) 99 Nasal Cannula 2.00 05/28/17 20:00 98.4 112 108/65 (79) 100 Nasal Cannula 2.00 05/28/17 19:00 110 05/28/17 19:00 110 92/60 (71) 96 Nasal Cannula 2.00 05/28/17 18:00 102 20 102/61 (75) 99 Nasal Cannula 2.00 05/28/17 17:00 106 19 123/48 (73) 100 Nasal Cannula 2.00 05/28/17 16:09 98.6 104 17 125/70 (88) 100 Nasal Cannula 2.00 05/28/17 15:00 107 20 100 Nasal Cannula 2.00 05/28/17 14:00 81 17 116/74 (88) 100 Nasal Cannula 2.00 05/28/17 13:00 75 16 95/46 (62) 100 Nasal Cannula 2.00 05/28/17 12:00 97.2 90 18 115/62 (79) 98 Nasal Cannula 2.00 05/28/17 11:26 98 23 114/75 (88) 100 Nasal Cannula 05/28/17 10:00 101 23 108/79 (89) 100 Room Air 05/28/17 09:00 110 11 120/76 (91) 100 Room Air 05/28/17 08:03 98.6 95 14 112/59 (76) 99 Room Air 05/28/17 08:00 Room Air 05/28/17 07:00 92 10 107/64 (78) 97 Nasal Cannula 2.00 05/28/17 07:00 94 05/28/17 06:00 99 12 112/57 (75) 100 Nasal Cannula 2.00 I & O 05/29/17 07:00 Intake Total 5391 ml Output Total 5025 ml Balance 366 ml Capillary Refill : General Appearance: Mild Distress HEENT: PERRL/EOMI Neck: Normal Inspection, Non Tender Respiratory: No Accessory Muscle Use, No Respiratory Distress Cardiovascular: No Edema, Normal Peripheral Pulses Gastrointestinal: non tender, soft Extremity: Normal Capillary Refill, Normal Inspection, Non Tender, No Calf Tenderness Neurologic/Psychiatric: Alert, Oriented x3, No Motor/Sensory Deficits, Normal Mood/Affect, physiotherapy assistant II-XII Norm as Tested, Other (BLE motor intact, NVI) Skin: Other (Dressing CDI) Results Lab Laboratory Tests 05/29/17 04:35: White Blood Count 20.4H, Red Blood Count 3.57L, Hemoglobin 10.8L, Hematocrit 33L , Mean Corpuscular Volume 92, Mean Corpuscular Hemoglobin 30, Mean Corpuscular Hemoglobin Concent 33, Red Cell Distribution Width 13.1, Platelet Count 412H, Mean Platelet Volume 9.4, Neutrophils (%) (Auto) 81H, Lymphocytes (%) (Auto) 9L , Monocytes (%) (Auto) 9, Eosinophils (%) (Auto) 1, Basophils (%) (Auto) 0, Neutrophils # (Auto) 16.5H, Lymphocytes # (Auto) 1.9, Monocytes # (Auto) 1.8H, Eosinophils # (Auto) 0.1, Basophils # (Auto) 0.1, Sodium Level 138, Potassium Level 3.9, Chloride Level 105, Carbon Dioxide Level 26, Anion Gap 7, Blood Urea Nitrogen 4L, Creatinine 0.64, Estimat Glomerular Filtration Rate > 60, BUN/ Creatinine Ratio 6, Glucose Level 113H, Calcium Level 8.3L, Phosphorus Level 2.0L, Magnesium Level 2.1, Total Bilirubin 0.6, Aspartate Amino Transf (AST/SGOT ) 43H, Alanine Aminotransferase (ALT/SGPT) 24, Alkaline Phosphatase 42, Total Protein 6.3L, Albumin 3.3 Assessment/Plan Assessment/Plan Assess & Plan/Chief Complaint Thoracic kyphosis with sagittal imbalance S/P T4-L2 PSF with T10 PSO Increase Oxycodone CR to 30 mg Continue to monitor labs and LINDA output Ambulate Clinical Quality Measures DVT/VTE Risk/Contraindication: Risk Factor Score Per Nursin RFS Level Per Nursing on Admit: 4+=Very High MANUEL CARO May 29, 2017 06:01
[2017-05-29] MEDS: POTASSIUM CL 10MEQ/50ML IVPB 50 ML IV SCH (06:07)
[2017-05-29] MEDS: MAGNESIUM 1 GM/100 ML IVPB 100 ML IV SCH (06:08)
[2017-05-29] MEDS: KCL 20 MEQ TAB (K-DUR) PO SCH (06:08)
[2017-05-29] MEDS: oxyCODONE ER 15 MG (oxyCONTIN CR) TAB PO SCH ×3 (07:33→22:12)
[2017-05-29] MEDS: MULTIVIT W/MINERALS TAB (THERAGRAN M) PO SCH (07:33)
--- NOTE | 2017-05-29 08:15 | Progress Note-Hospitalist ---
Subjective HPI/CC On Admission Date Seen by Provider: May 29, 2017 Time Seen by Provider: 07:50 Pt is a 27yoCF with no past medical history who was admitted for spinal fusion for kyphosis. We are consulted for medical management following surgery. She reports pain from her surgery but controlled with pain medicine. She is up in chair at time of bed. She developed a headache with sitting up but improved with pain medicine. She has no complaints at this time. Subjective/Events-last exam Pt reports pain is starting to improve. Sitting up in bed. Per RN had difficulty managing pain yesterday. Objective Exam Vital Signs Vital Sign - Last 12Hours 05/27/17 05/27/17 08:36 16:40 Temp 98.7 Pulse 89 Resp 18 B/P (MAP) 124/74 (91) Pulse Ox 100 O2 Delivery Room Air O2 Flow Rate 10.00 Capillary Refill : General Appearance: No Apparent Distress, WD/WN Respiratory: Lungs Clear, No Respiratory Distress Cardiovascular: Regular Rate, Rhythm, No Murmur Gastrointestinal: Normal Bowel Sounds, Non Tender, Soft Extremity: Non Tender, No Calf Tenderness Neurologic/Psychiatric: Alert, Oriented x3 Results/Procedures Lab Laboratory Tests 05/29/17 04:35 Assessment/Plan Assessment and Plan Assess & Plan/Chief Complaint kyphosis s/p spinal fusion Diagnosis/Problems Diagnosis/Problems (1) Kyphosis Status: Chronic Assessment & Plan: s/p spinal fusion Management per Primary PT/OT Oxycontin increased Morphine for breakthrough pain Qualifiers: Qualified Codes: M40.209 - Unspecified kyphosis, site unspecified (2) Leukocytosis Status: Acute Assessment & Plan: Likely due to surgery, improving No signs of infection Received prophylactic ancef Monitor closely (3) Normocytic anemia Assessment & Plan: likely due to acute blood loss form surgery Trend, up from yesterday (4) Prophylactic measure Assessment & Plan: Saline lock Reg diet SCDS - lovenox when ok with primary ILDEFONSO DOW MD May 29, 2017 8:14 am
[2017-05-29] MEDS: DOCUSATE SODIUM 100 MG (COLACE) CAP PO SCH ×2 (08:23→20:05)
[2017-05-29] MEDS: BISACODYL 5 MG (DULCOLAX) TABLET PO PRN ×2 (08:24→20:05)
[2017-05-29] MEDS: FAMOTIDINE 20 MG (PEPCID) TABLET PO SCH ×2 (08:24→20:04)
--- NOTE | 2017-05-29 09:02 | Diagnostic Imaging Report ---
INDICATION: Postop surgery for kyphosis. Frontal chest obtained at 5:22 a.m. is compared to yesterday. FINDINGS: Thoracolumbar spinal rods are again noted. There is no acute infiltrate or pneumothorax or pleural fluid. Heart is normal in size. IMPRESSION: Postop changes in the thoracolumbar spine. No acute process in the chest. Dictated by: Dictated on workstation # [id number]
[2017-05-29] MEDS: BACITRACIN OINTMENT 28 GM TUBE TOP SCH ×2 (09:05→22:11)
--- NOTE | 2017-05-29 10:18 | Physical Therapy Daily Note ---
PT Daily Note-Current Subjective Pt sitting in recliner upon arrival. Pt agrees to walking for PT. Pain Numeric Pain Scale: 10-Worst Possible Pain Location: Dorsal Location Body Site: Back Pain Description: Sharp Mental Status Patient Orientation: Person, Place, Time, Situation Attachments: Drains, Carballo Catheter, Other-See Comments (TLSO brace) Transfers Functional [place] Measure 0=Not Assessed/NA 4=Minimal Assistance 1=Total Assistance 5=Supervision or Setup 2=Maximal Assistance 6=Modified [place] 3=Moderate Assistance 7=Complete IndependenceIRFPAI Quality Coding Scale 6 Independent with activity with or without an assistive device 5 Patient requires set up or clean up by helper. Patient completes activity by themselves 4 Supervision or touching assist (CGA). [place] provide cues , steadying assist 3 The helper provides less than half the effort to complete the activity 2 The helper provides more than half the effort to complete the activity 1 Dependent. The helper does all the effort to complete an activity 7 Patient refused to complete or attempt activity 9 The patient did not perform the activity before the current illness or injury 88 Not attempted due to Medical conditions or safety concerns Scootin Rollin Supine to/from Sit: 5 Sit to/from Stand: 5 Weight Bearing Right Lower Extremity: Right Weight Bearing/Tolerated Left Lower Extremity: Left Weight Bearing/Tolerated Gait Training Distance (FIM): 3=150 ft Distance: 150' Gait Level of Assist: 5 Gait Persons Needed: 1 Gait Assistive Device: FWW Pt's gait is slow but steady. Pt's step length increases during ambulation. Pt 's pain increases with ambulation. Treatments Pt transfers from recliner to standing using FWW at SBA. Pt ambulates to Nurse' s Station and back to room using FWW at close SBA. Pt returns to room to rest Supine in bed with head raised at end of tx with all needs met. Assessment Current Status: Good Progress Pt reports pain starts at around 7/10 but will increase to 10/10 with ambulation. Pt is very motivated to get home to kids. Pt's pushes through the pain during ambulation knowing it will make her better. PT Sewer Pipe Press Operator Goals Sewer Pipe Press Operator Goals PT Residential Goals Time Frame: Jun 14, 2017 Transfers (B,C,W/C) (FIM): 4 Gait (FIM): 3 Gait distance (FIM): 3=150 ft Distance: 150' Gait Level of Assist: 5 Gait Assistive Device: FWW PT Plan Problem List Problem List: Activity Tolerance, Functional Strength, Safety, Balance, Gait Treatment/Plan Treatment Plan: Continue Plan of Care Treatment Plan: Bed Mobility, Education, Functional Activity Teodora, Functional Strength, Gait, Safety, Therapeutic Exercise, Transfers Treatment Duration: Jun 14, 2017 Frequency: 11 times per week Estimated Hrs Per Day: .5 hour per day Patient and/or Family Agrees t: Yes Safety Risks/Education Patient Education: Gait Training, Correct Positioning, Safety Issues Teaching Recipient: Patient Teaching Methods: Discussion Response to Teaching: Verbalize Understanding Time/GCodes Time In: 940 Time Out: 1005 Total Billed Treatment Time: 25 Total Billed Treatment 1, GT x2 (25m) LUIS MITCHELL PTA May 29, 2017 10:18
[2017-05-29] MEDS ORDERED: SODIUM PHOSPHATE INJ 15 MM in NS (IVPB) 100 ML IV NR (11:15)
[2017-05-29] MEDS: diphenhydrAMINE 25 MG TAB (BENADRYL) PO PRN (13:42)
--- NOTE | 2017-05-29 13:42 | Occupational Ther Daily Note ---
OT Current Status-Daily Note Subjective Pt agreeable to treatment this pm. Mental Status/Objective Functional [place] Measure 0=Not Assessed/NA 4=Minimal Assistance 1=Total Assistance 5=Supervision or Setup 2=Maximal Assistance 6=Modified [place] 3=Moderate Assistance 7=Complete [place] Attachments: Drains, Carballo Catheter, IV, Oxygen, Other-See Comments (TLSO) ADL-Treatment Pt sitting EOB with RN present when therapist arrives. Pt sit to stand and transfer to chair with SBA with slow movements using FWW. Pt wearing TLSO. Education provided regarding ADL completion. and back precautions. Pt instructed in use of adaptive equipment for LE dressing. Pt states she has a rehab specialist at home. Pt used rehab specialist to doff sock with verbal cues for technique. Pt donned socks with SBA using sock aid. Pt has questions regarding toileting completion. Education provided regarding toileting aid. Pt states understanding of all education and does not have any questions at this time. Pt states spouse has taken three weeks off to be at home with her, but she wants to be as independent as possible. Will continue ADL training in future sessions. Pt sitting in chair with needs met and spouse present after session. OT Short Term Goals Short Term Goals 1=Demonstrate adherence to instructed precautions during ADL tasks. 2=Patient will verbalize/demonstrate understanding of assistive devices/ modifications for ADL. 3=Patient will improve strength/tolerance for activity to enable patient to perform ADL's. OT Mud Analysis Well Logging Captain Goals Mud Analysis Well Logging Captain Goals Time Frame: Jun 04, 2017 Eating (FIM): 7 Grooming(FIM): 6 Bathing(FIM): 5 Upper Body Dressing(FIM): 5 Lower Body Dressing(FIM): 5 Toileting(FIM): 6 Toilet/Commode Transfer(FIM): 6 Shower Transfer(FIM): 5 Additional Goals: 1-Demonstrate ADL Tasks, 2-Verbalize Understanding, 3- ImproveStrength/Teodora 1=Demonstrate adherence to instructed precautions during ADL tasks. 2=Patient will verbalize/demonstrate understanding of assistive devices/ modifications for ADL. 3=Patient will improve strength/tolerance for activity to enable patient to perform ADL's. OT Education/Plan Problem List/Assessment Pt would benefit from skilled OT to increase her independence in basic self care to allow her to safely return to her home and to decrease caregiver burden Discharge Recommendations Plan/Recommendations: Continue POC Treatment Plan/Plan of Care Patient would benefit from OT for education, treatment and training to promote independence in ADL's, mobility, safety and/or upper extremity function for ADL' s. Plan of Care: ADL Retraining, Functional Mobility, UE Funct Exercise/Act Treatment Duration: Jun 04, 2017 Frequency: 5 times per week Estimated Hrs Per Day: .5 hour per day Agreement: Yes Rehab Potential: Good Time/GCodes Start Time: 13:10 Stop Time: 13:25 Total Time Billed (hr/min): 15 Billed Treatment Time 1 visit, ADL(15minutes) YAZ OSCAR OT May 29, 2017 13:42
--- NOTE | 2017-05-29 15:25 | Physical Therapy Daily Note ---
PT Daily Note-Current Subjective Pt sitting in recliner upon arrival. Pt agrees to walking for PT. Pain Numeric Pain Scale: 10-Worst Possible Pain Location: Dorsal Location Body Site: Back Pain Description: Sharp Mental Status Patient Orientation: Person, Place, Time, Situation Attachments: Drains, Carballo Catheter, Other-See Comments (TLSO brace), IV Transfers Functional [place] Measure 0=Not Assessed/NA 4=Minimal Assistance 1=Total Assistance 5=Supervision or Setup 2=Maximal Assistance 6=Modified [place] 3=Moderate Assistance 7=Complete IndependenceIRFPAI Quality Coding Scale 6 Independent with activity with or without an assistive device 5 Patient requires set up or clean up by helper. Patient completes activity by themselves 4 Supervision or touching assist (CGA). [place] provide cues , steadying assist 3 The helper provides less than half the effort to complete the activity 2 The helper provides more than half the effort to complete the activity 1 Dependent. The helper does all the effort to complete an activity 7 Patient refused to complete or attempt activity 9 The patient did not perform the activity before the current illness or injury 88 Not attempted due to Medical conditions or safety concerns Scootin Supine to/from Sit: 5 Sit to/from Stand: 5 Weight Bearing Right Lower Extremity: Right Weight Bearing/Tolerated Left Lower Extremity: Left Weight Bearing/Tolerated Gait Training Distance (FIM): 3=150 ft Distance: 150' Gait Level of Assist: 5 Gait Persons Needed: 1 Gait Assistive Device: FWW Pt has slow but steady gait pattern, no LOB. Pt's frederic is a little faster, more fluid than this morning. Treatments Pt transfers from recliner to standing using FWW at close SBA. Pt ambulates in hallway using FWW at close SBA. Pt returns to room to rest in bed. Pt transfers from standing to EOB to Supine at SBA. Pt rests at end of tx with all needs met. Assessment Current Status: Good Progress Pt is continuing to stay motivated and wants to get home to her kids. Pt's frederic is a little faster. PT Alteration Worker Goals Alteration Worker Goals PT Alteration Worker Goals Time Frame: Jun 14, 2017 Transfers (B,C,W/C) (FIM): 4 Gait (FIM): 3 Gait distance (FIM): 3=150 ft Distance: 150' Gait Level of Assist: 5 Gait Assistive Device: FWW PT Plan Problem List Problem List: Activity Tolerance, Functional Strength, Safety, Balance, Gait, Transfer Treatment/Plan Treatment Plan: Continue Plan of Care Treatment Plan: Bed Mobility, Education, Functional Activity Teodora, Functional Strength, Gait, Safety, Therapeutic Exercise, Transfers Treatment Duration: Jun 14, 2017 Frequency: 11 times per week Estimated Hrs Per Day: .5 hour per day Patient and/or Family Agrees t: Yes Safety Risks/Education Patient Education: Gait Training, Transfer Techniques, Correct Positioning, Safety Issues Teaching Recipient: Patient Teaching Methods: Discussion Response to Teaching: Verbalize Understanding Time/GCodes Time In: 1440 Time Out: 1505 Total Billed Treatment Time: 25 Total Billed Treatment 1, GT x2 (25m) LUIS MITCHELL PTA May 29, 2017 15:25
[2017-05-29] MEDS: HYDROmorphone (DILAUDID) 2 MG TAB PO PRN ×2 (17:30→20:05)
[2017-05-29] MEDS: ONDANSETRON 4 MG/2 ML (SDV) Z0FRAN IV PRN (23:16)
[2017-05-30] VITALS (21 sets, daily range): BP systolic 96–127; BP diastolic 47–90
[2017-05-30] MEDS: PROMETHAZINE 25 MG (PHENERGAN) TAB PO PRN (00:08)
[2017-05-30] MEDS: DIAZEPAM 5 MG (VALIUM) TABLET PO PRN ×3 (00:08→17:13)
[2017-05-30] MEDS: HYDROmorphone (DILAUDID) 2 MG TAB PO PRN ×5 (00:11→20:59)
[2017-05-30] MEDS: ACETAMINOPHEN 325 MG TABLET/CAPLET (TYLENOL) PO PRN ×2 (02:13→13:48)
[2017-05-30] MEDS: morphine INJ 10 MG/ML 1ML (SYR OR VIAL) IVP PRN ×7 (02:47→23:07)
[2017-05-30 05:20] LABS: BASOPHILS # (AUTO) 0.1 10^3/uL (0.0-0.1); BASOPHILS % (AUTO) 0 % (0-10); EOSINOPHILS # (AUTO) 0.8 10^3/uL (0.0-0.3); EOSINOPHILS % (AUTO) 5 % (0-10); LYMPHOCYTES # (AUTO) 2.2 X 10^3 (1.0-4.0); LYMPHOCYTES % (AUTO) 13 % (12-44); MEAN CORPUSCULAR HEMOGLOBIN 30 PG (25-34); MEAN CORPUSCULAR HGB CONC 33 G/DL (32-36); MEAN CORPUSCULAR VOLUME 92 FL (80-99); MEAN PLATELET VOLUME 9.4 FL (7.4-10.4); MONOCYTES # (AUTO) 1.3 X 10^3 (0.0-1.0); MONOCYTES % (AUTO) 8 % (0-12); NEUTROPHILS # (AUTO) 12.6 X 10^3 (1.8-7.8); NEUTROPHILS % (AUTO) 74 % (42-75); PLATELET COUNT 426 10^3/uL (130-400); RED BLOOD COUNT 3.53 10^6/uL (4.35-5.85); RED CELL DISTRIBUTION WIDTH 12.9 % (10.0-14.5)
--- NOTE | 2017-05-30 05:28 | Progress Note (SOAP) ---
Subjective Date Seen by Provider: May 30, 2017 Time Seen by Provider: 05:24 Subjective/Events-last exam POD #3, s/p T4-L2 PSF with T10 PSO Afebrile Complains of back pain Denies flatus Review of Systems General: No Chills Pulmonary: No Dyspnea, No Cough Cardiovascular: No: Chest Pain Gastrointestinal: Nausea, No: Vomiting, Abdominal Pain Musculoskeletal: back pain, No: leg pain Neurological: No: Weakness, Numbness, Incoordination, Confusion Objective Exam Vital Signs Date Time Temp Pulse Resp B/P (MAP) Pulse Ox O2 Delivery O2 Flow Rate FiO2 05/30/17 04:00 93 12 102/47 (65) 99 Nasal Cannula 2.00 05/30/17 03:40 99 Nasal Cannula 2.00 05/30/17 03:00 100 10 123/69 (87) 99 Nasal Cannula 2.00 05/30/17 02:00 103 14 106/56 (73) 100 Nasal Cannula 2.00 05/30/17 01:00 97 05/30/17 01:00 102 14 115/65 (82) 100 Nasal Cannula 2.00 05/30/17 00:00 100.0 112 19 123/64 (83) 100 Nasal Cannula 2.00 05/30/17 00:00 100 Nasal Cannula 2.00 05/29/17 21:00 81 10 99/63 (75) 90 Nasal Cannula 2.00 05/29/17 20:00 99.5 99 7 103/45 (64) 100 Nasal Cannula 2.00 05/29/17 20:00 Nasal Cannula 2.00 05/29/17 19:00 142 16 114/89 (97) 98 Nasal Cannula 2.00 05/29/17 19:00 142 05/29/17 18:00 90 7 111/55 (73) 96 Nasal Cannula 2.00 05/29/17 17:00 78 10 91/42 (58) 100 Nasal Cannula 2.00 05/29/17 16:05 Nasal Cannula 2.00 05/29/17 16:00 98 10 113/67 (82) 100 Nasal Cannula 2.00 05/29/17 15:00 94 24 119/73 (88) 100 Nasal Cannula 2.00 05/29/17 14:00 110 25 110/86 (94) 100 Nasal Cannula 2.00 05/29/17 13:00 98 20 103/62 (76) 100 Nasal Cannula 2.00 05/29/17 13:00 98 05/29/17 12:00 98 20 106/64 (78) 100 Nasal Cannula 2.00 05/29/17 11:00 Nasal Cannula 2.00 05/29/17 11:00 98.0 101 20 114/61 (78) 100 Nasal Cannula 2.00 05/29/17 10:00 111 14 116/74 (88) 100 Nasal Cannula 2.00 05/29/17 09:00 109 114/65 (81) 100 Nasal Cannula 2.00 05/29/17 08:07 Room Air 05/29/17 08:00 100 103/57 (72) 100 Nasal Cannula 2.00 05/29/17 07:50 98.4 05/29/17 07:00 121 120/65 (83) 100 Nasal Cannula 2.00 05/29/17 07:00 107 05/29/17 06:30 Nasal Cannula 2.00 05/29/17 06:00 114 109/67 (81) 100 Nasal Cannula 2.00 I & O 05/30/17 07:00 Intake Total 2620 ml Output Total 4040 ml Balance -1420 ml Capillary Refill : General Appearance: No Apparent Distress HEENT: PERRL/EOMI Neck: Full Range of Motion Respiratory: No Accessory Muscle Use, No Respiratory Distress Cardiovascular: No Edema, Tachycardia Gastrointestinal: non tender, soft Extremity: Normal Capillary Refill, Normal Inspection, Normal Range of Motion, Non Tender, No Calf Tenderness Neurologic/Psychiatric: Alert, Oriented x3, No Motor/Sensory Deficits, Normal Mood/Affect, 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 II-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 Norm as Tested Skin: Normal Color, Warm/Dry, Other (Dressing CDI) Results Lab Laboratory Tests 05/30/17 04:35: White Blood Count 17.0H, Red Blood Count 3.53L, Hemoglobin 10.6L, Hematocrit 33L , Mean Corpuscular Volume 92, Mean Corpuscular Hemoglobin 30, Mean Corpuscular Hemoglobin Concent 33, Red Cell Distribution Width 12.9, Platelet Count 426H, Mean Platelet Volume 9.4, Neutrophils (%) (Auto) 74, Lymphocytes (%) (Auto) 13, Monocytes (%) (Auto) 8, Eosinophils (%) (Auto) 5, Basophils (%) (Auto) 0, Neutrophils # (Auto) 12.6H, Lymphocytes # (Auto) 2.2, Monocytes # (Auto) 1.3H, Eosinophils # (Auto) 0.8H, Basophils # (Auto) 0.1 Assessment/Plan Assessment/Plan Assess & Plan/Chief Complaint Thoracic kyphosis with sagittal imbalance S/P T4-L2 PSF with T10 PSO DC oxycodone at this time Begin Fentanyl Begin Miralax Clinical Quality Measures DVT/VTE Risk/Contraindication: Risk Factor Score Per Nursin RFS Level Per Nursing on Admit: 4+=Very High MANUEL CARO May 30, 2017 05:27
[2017-05-30] MEDS ORDERED: fentaNYL PATCH 50 MCG (DURAGESIC) TD SCH (05:30)
[2017-05-30 05:48] LABS: ANION GAP 8 MMOL/L (5-14); BLOOD UREA NITROGEN 4 MG/DL (7-18); BUN/CREATININE RATIO 7; CALCIUM 9.1 MG/DL (8.5-10.1); CARBON DIOXIDE 28 MMOL/L (21-32); CHLORIDE 100 MMOL/L (98-107); GFR ESTIMATED > 60; GLUCOSE 101 MG/DL (70-105); MAGNESIUM 1.9 MG/DL (1.8-2.4); PHOSPHORUS 3.1 MG/DL (2.3-4.7); POTASSIUM 3.6 MMOL/L (3.6-5.0); SODIUM 136 MMOL/L (135-145)
[2017-05-30] MEDS: POTASSIUM CL 10MEQ/50ML IVPB 50 ML IV SCH (05:59)
[2017-05-30] MEDS: MAGNESIUM 1 GM/100 ML IVPB 100 ML IV SCH (05:59)
[2017-05-30] MEDS: KCL 20 MEQ TAB (K-DUR) PO SCH (05:59)
[2017-05-30] MEDS: MULTIVIT W/MINERALS TAB (THERAGRAN M) PO SCH (06:06)
[2017-05-30] MEDS: POLYETHYLENE GLYCOL 17 GM (MIRALAX) PACK PO SCH (06:06)
--- NOTE | 2017-05-30 07:09 | Diagnostic Imaging Report ---
EXAMINATION: Portable erect AP chest obtained at 431h. INDICATION: Postop The heart size is within normal limits and stable when compared to 05/29/2017. The lungs remain clear. There is still no sign of failure, pneumonia or a pleural effusion to suggest an acute abnormality. The mediastinum is not widened. The osseous structures are intact. The extensive postsurgical changes involving the thoracic spine seen on the prior study are again evident and no different. IMPRESSION: Stable chest. There has been no adverse change since the prior exam. Dictated by: Dictated on workstation # [id number]
--- NOTE | 2017-05-30 07:57 | Progress Note-Hospitalist ---
Subjective HPI/CC On Admission Date Seen by Provider: May 30, 2017 Time Seen by Provider: 07:25 Pt is a 27yoCF with no past medical history who was admitted for spinal fusion for kyphosis. We are consulted for medical management following surgery. She reports pain from her surgery but controlled with pain medicine. She is up in chair at time of bed. She developed a headache with sitting up but improved with pain medicine. She has no complaints at this time. Subjective/Events-last exam She reports continued pain. She was up walking today and pain worsened with that. She has not had any IV pain medicine for a while and does not feel fentanyl patch is helping yet. Informed her of timeframe for patch to start working and will inform nurse of need for pain medicine at this time. Advised to inform nurse before getting up to walk so pain an be pretreated. Objective Exam Vital Signs Vital Sign - Last 12Hours 05/27/17 05/27/17 08:36 16:40 Temp 98.7 Pulse 89 Resp 18 B/P (MAP) 124/74 (91) Pulse Ox 100 O2 Delivery Room Air O2 Flow Rate 10.00 Capillary Refill : General Appearance: No Apparent Distress, WD/WN Respiratory: Lungs Clear, No Respiratory Distress Cardiovascular: Regular Rate, Rhythm, No Murmur Gastrointestinal: Normal Bowel Sounds, Non Tender, Soft Extremity: Non Tender, No Calf Tenderness Neurologic/Psychiatric: Alert, Oriented x3 Results/Procedures Lab Laboratory Tests 05/30/17 04:35 Assessment/Plan Assessment and Plan Assess & Plan/Chief Complaint kyphosis s/p spinal fusion Diagnosis/Problems Diagnosis/Problems (1) Kyphosis Status: Chronic Assessment & Plan: s/p spinal fusion Management per Primary PT/OT On PO Dilaudid along with Fentanyl patch Morphine for breakthrough pain Qualifiers: Qualified Codes: M40.209 - Unspecified kyphosis, site unspecified (2) Leukocytosis Status: Acute Assessment & Plan: Likely due to surgery, improving No signs of infection Received prophylactic ancef Monitor closely (3) Normocytic anemia Assessment & Plan: likely due to acute blood loss form surgery Trend, up from yesterday (4) Prophylactic measure Assessment & Plan: Saline lock Reg diet SCDS - lovenox when ok with primary - still has serosanguinous fluid in drain ILDEFONSO DOW MD May 30, 2017 7:57 am
--- NOTE | 2017-05-30 09:25 | Physical Therapy Daily Note ---
PT Daily Note-Current Subjective Patient is in very good spirits this a.m. She states she is ready to get up and walk. Patient reports she is still in pain, but it is improving and she is ready to push through. Pain Numeric Pain Scale: 5-Moderate Pain Location Body Site: Back Appearance Patient appears in good health. She is left post tx seated in recliner with call light in reach. Mental Status Patient Orientation: Normal For Age Attachments: Carballo Catheter Transfers Functional [place] Measure 0=Not Assessed/NA 4=Minimal Assistance 1=Total Assistance 5=Supervision or Setup 2=Maximal Assistance 6=Modified [place] 3=Moderate Assistance 7=Complete IndependenceIRFPAI Quality Coding Scale 6 Independent with activity with or without an assistive device 5 Patient requires set up or clean up by helper. Patient completes activity by themselves 4 Supervision or touching assist (CGA). [place] provide cues , steadying assist 3 The helper provides less than half the effort to complete the activity 2 The helper provides more than half the effort to complete the activity 1 Dependent. The helper does all the effort to complete an activity 7 Patient refused to complete or attempt activity 9 The patient did not perform the activity before the current illness or injury 88 Not attempted due to Medical conditions or safety concerns Transfers (B, C, W/C) (FIM): 5 Scootin Rollin Supine to/from Sit: 5 Sit to/from Stand: 5 Patient performs all transfers safely with SBA from PT. Weight Bearing Right Lower Extremity: Right Weight Bearing/Tolerated Left Lower Extremity: Left Weight Bearing/Tolerated Gait Training Distance: 200' Gait Level of Assist: 5 Gait Persons Needed: 1 Gait Assistive Device: FWW Patient ambulates safely in a FWW. Patient gait is slow due to pain, but she is demonstrating improved stride length and frederic. Assessment Current Status: Good Progress Patient is very motivated to return home and is very willing to participate in PT. PT will continue to address gait and implement therapeutic exercise as patient tolerates. PT Group Home Goals Exterminator Helper Goals PT Exterminator Helper Goals Time Frame: Jun 14, 2017 Transfers (B,C,W/C) (FIM): 4 Gait (FIM): 3 Gait distance (FIM): 3=150 ft Distance: 150' Gait Level of Assist: 5 Gait Assistive Device: FWW PT Plan Problem List Problem List: Activity Tolerance, Functional Strength, Safety, Balance, Gait Treatment/Plan Treatment Plan: Continue Plan of Care Treatment Plan: Bed Mobility, Education, Functional Activity Teodora, Functional Strength, Gait, Safety, Therapeutic Exercise, Transfers Treatment Duration: Jun 14, 2017 Frequency: 11 times per week Estimated Hrs Per Day: .5 hour per day Patient and/or Family Agrees t: Yes Time/GCodes Time In: 820 Time Out: 835 Total Billed Treatment Time: 15 Total Billed Treatment 1 visit GT 15 min CORINE JOSHUA PT May 30, 2017 09:25
[2017-05-30] MEDS: DOCUSATE SODIUM 100 MG (COLACE) CAP PO SCH ×2 (09:40→20:58)
[2017-05-30] MEDS: FAMOTIDINE 20 MG (PEPCID) TABLET PO SCH ×2 (09:40→20:58)
[2017-05-30] MEDS: BACITRACIN OINTMENT 28 GM TUBE TOP SCH ×2 (09:41→21:15)
[2017-05-30] MEDS: ONDANSETRON 4 MG/2 ML (SDV) Z0FRAN IV PRN (09:46)
--- NOTE | 2017-05-30 14:21 | Occupational Ther Daily Note ---
OT Current Status-Daily Note Subjective Pt alert, lying in bed. Nrsg present giving pt medications. Pt stated that she was hurting and felt bad. Mental Status/Objective Patient Orientation: Person, Place, Time, Situation Functional [place] Measure 0=Not Assessed/NA 4=Minimal Assistance 1=Total Assistance 5=Supervision or Setup 2=Maximal Assistance 6=Modified [place] 3=Moderate Assistance 7=Complete [place] Other Treatment NOE discussed with pt about using ergonomics and energy conservation at home. Educated about tub shower or walk-in shower transfers and that there is equipment available for safety. After therapy, PT took over care. All needs met in room. OT Short Term Goals Short Term Goals 1=Demonstrate adherence to instructed precautions during ADL tasks. 2=Patient will verbalize/demonstrate understanding of assistive devices/ modifications for ADL. 3=Patient will improve strength/tolerance for activity to enable patient to perform ADL's. OT Halfway Goals Communications Controller Goals Time Frame: Jun 04, 2017 Eating (FIM): 7 Grooming(FIM): 6 Bathing(FIM): 5 Upper Body Dressing(FIM): 5 Lower Body Dressing(FIM): 5 Toileting(FIM): 6 Toilet/Commode Transfer(FIM): 6 Shower Transfer(FIM): 5 Additional Goals: 1-Demonstrate ADL Tasks, 2-Verbalize Understanding, 3- ImproveStrength/Teodora 1=Demonstrate adherence to instructed precautions during ADL tasks. 2=Patient will verbalize/demonstrate understanding of assistive devices/ modifications for ADL. 3=Patient will improve strength/tolerance for activity to enable patient to perform ADL's. OT Education/Plan Problem List/Assessment Pt would benefit from skilled OT to increase her independence in basic self care to allow her to safely return to her home and to decrease caregiver burden Discharge Recommendations Plan/Recommendations: Continue POC Treatment Plan/Plan of Care Patient would benefit from OT for education, treatment and training to promote independence in ADL's, mobility, safety and/or upper extremity function for ADL' s. Plan of Care: ADL Retraining, Functional Mobility, UE Funct Exercise/Act Treatment Duration: Jun 04, 2017 Frequency: 5 times per week Estimated Hrs Per Day: .5 hour per day Agreement: Yes Rehab Potential: Good Time/GCodes Start Time: 13:40 Stop Time: 14:00 Total Time Billed (hr/min): 20 Billed Treatment Time 1 visit-FA 1 (20 min) MOI COOK May 30, 2017 14:21
--- NOTE | 2017-05-30 14:41 | Physical Therapy Daily Note ---
PT Daily Note-Current Subjective Patient is supine in bed when PT enters the room. She states she wants to get up and walk again. Patient is very motivated to return home to her children. Pain Numeric Pain Scale: 7 Location Body Site: Back Comment: she states she is "very sore" Appearance Patient appears in good gómez. She is left post tx supine in bed with call light in reach and spouse present. Mental Status Patient Orientation: Normal For Age Attachments: Carballo Catheter Transfers Functional [place] Measure 0=Not Assessed/NA 4=Minimal Assistance 1=Total Assistance 5=Supervision or Setup 2=Maximal Assistance 6=Modified [place] 3=Moderate Assistance 7=Complete IndependenceIRFPAI Quality Coding Scale 6 Independent with activity with or without an assistive device 5 Patient requires set up or clean up by helper. Patient completes activity by themselves 4 Supervision or touching assist (CGA). [place] provide cues , steadying assist 3 The helper provides less than half the effort to complete the activity 2 The helper provides more than half the effort to complete the activity 1 Dependent. The helper does all the effort to complete an activity 7 Patient refused to complete or attempt activity 9 The patient did not perform the activity before the current illness or injury 88 Not attempted due to Medical conditions or safety concerns Transfers (B, C, W/C) (FIM): 5 Scootin Rollin Supine to/from Sit: 5 Sit to/from Stand: 5 Patient safely performs all transfers with SBA. Weight Bearing Right Lower Extremity: Right Weight Bearing/Tolerated Left Lower Extremity: Left Weight Bearing/Tolerated Gait Training Gait (FIM): 5 Distance: 300' Gait Level of Assist: 5 Gait Persons Needed: 1 Gait Assistive Device: FWW Patient walks slowly in the FWW only limited by pain. Patient stride increases as she becomes more comfortable walking. Exercises Supine Ex: Heel Slides, Hip abd/add Supine Reps: 15 Assessment Current Status: Good Progress Patient is very motivated. She has great tolerance for exercise, gait, and pain and continues to progress with every visit. Patient has great outlook for recovery with skilled PT interventions. PT Epic Ambulatory Analyst Goals Epic Ambulatory Analyst Goals PT Epic Ambulatory Analyst Goals Time Frame: Jun 14, 2017 Transfers (B,C,W/C) (FIM): 4 Gait (FIM): 3 Gait distance (FIM): 3=150 ft Distance: 150' Gait Level of Assist: 5 Gait Assistive Device: FWW PT Plan Problem List Problem List: Activity Tolerance, Functional Strength, Safety, Balance, Gait Treatment/Plan Treatment Plan: Continue Plan of Care Treatment Plan: Bed Mobility, Education, Functional Activity Teodora, Functional Strength, Gait, Safety, Therapeutic Exercise, Transfers Treatment Duration: Jun 14, 2017 Frequency: 11 times per week Estimated Hrs Per Day: .5 hour per day Patient and/or Family Agrees t: Yes Discharge Recommendations Therapy D/C Recommendations: Home w/ Family Support Equpiment Recommendations-D/C: Front Wheeled Walker Time/GCodes Time In: 1403 Time Out: 1430 Total Billed Treatment Time: 27 Total Billed Treatment 1 visit EX 12 min GT 15 min CORINE JOSHUA PT May 30, 2017 14:41
[2017-05-30] MEDS ORDERED: morphine ER 30 MG (MS CONTIN) TAB PO PRN (17:15)
[2017-05-30] MEDS: diphenhydrAMINE 25 MG TAB (BENADRYL) PO PRN (18:12)
[2017-05-30] MEDS: morphine ER 30 MG (MS CONTIN) TAB PO SCH ×2 (18:13→21:37)
[2017-05-30] MEDS: BISACODYL 5 MG (DULCOLAX) TABLET PO PRN (21:00)
[2017-05-31] VITALS: BP 103/55
[2017-05-31 01:00] VITALS: BP 113/70
[2017-05-31] MEDS: DIAZEPAM 5 MG (VALIUM) TABLET PO PRN ×3 (01:51→21:43)
[2017-05-31] MEDS: morphine ER 30 MG (MS CONTIN) TAB PO SCH ×3 (01:51→17:33)
[2017-05-31] MEDS: morphine INJ 10 MG/ML 1ML (SYR OR VIAL) IVP PRN ×6 (04:49→22:01)
[2017-05-31 05:01] LABS: BASOPHILS # (AUTO) 0.1 10^3/uL (0.0-0.1); BASOPHILS % (AUTO) 0 % (0-10); EOSINOPHILS # (AUTO) 1.1 10^3/uL (0.0-0.3); EOSINOPHILS % (AUTO) 8 % (0-10); LYMPHOCYTES # (AUTO) 1.9 X 10^3 (1.0-4.0); LYMPHOCYTES % (AUTO) 14 % (12-44); MEAN CORPUSCULAR HEMOGLOBIN 30 PG (25-34); MEAN CORPUSCULAR HGB CONC 33 G/DL (32-36); MEAN CORPUSCULAR VOLUME 93 FL (80-99); MEAN PLATELET VOLUME 9.4 FL (7.4-10.4); MONOCYTES # (AUTO) 1.1 X 10^3 (0.0-1.0); MONOCYTES % (AUTO) 9 % (0-12); NEUTROPHILS # (AUTO) 9.3 X 10^3 (1.8-7.8); NEUTROPHILS % (AUTO) 69 % (42-75); PLATELET COUNT 427 10^3/uL (130-400); RED BLOOD COUNT 3.17 10^6/uL (4.35-5.85); RED CELL DISTRIBUTION WIDTH 12.6 % (10.0-14.5); WHITE BLOOD COUNT 13.4 10^3/uL (4.3-11.0)
[2017-05-31 05:23] LABS: ANION GAP 11 MMOL/L (5-14); BLOOD UREA NITROGEN 4 MG/DL (7-18); BUN/CREATININE RATIO 7; CALCIUM 8.7 MG/DL (8.5-10.1); CARBON DIOXIDE 28 MMOL/L (21-32); CHLORIDE 99 MMOL/L (98-107); CREATININE SERUM 0.59 MG/DL (0.60-1.30); GFR ESTIMATED > 60; GLUCOSE 112 MG/DL (70-105); PHOSPHORUS 3.5 MG/DL (2.3-4.7); POTASSIUM 3.9 MMOL/L (3.6-5.0); SODIUM 138 MMOL/L (135-145)
--- NOTE | 2017-05-31 05:51 | Progress Note (SOAP) ---
Subjective Date Seen by Provider: May 31, 2017 Time Seen by Provider: 05:49 Subjective/Events-last exam Doing better, but still hurting a lot. No BM, no flatus Feels ok. Objective Exam Vital Signs Date Time Temp Pulse Resp B/P (MAP) Pulse Ox O2 Delivery O2 Flow Rate FiO2 05/31/17 01:00 105 05/30/17 23:00 112 10 118/56 (76) 94 Nasal Cannula 2.00 05/30/17 22:00 113 19 100 Nasal Cannula 2.00 05/30/17 21:00 116 11 120/90 (100) 97 Nasal Cannula 2.00 05/30/17 20:00 98.2 85 7 101/64 (76) 98 Nasal Cannula 2.00 05/30/17 20:00 Nasal Cannula 2.00 05/30/17 19:00 86 05/30/17 19:00 84 7 96/67 (77) 100 Nasal Cannula 2.00 05/30/17 18:00 82 19 96 Nasal Cannula 2.00 05/30/17 17:00 96 11 103/64 (77) 98 Nasal Cannula 2.00 05/30/17 16:00 82 28 106/60 (75) 99 Nasal Cannula 2.00 05/30/17 16:00 Nasal Cannula 2.00 05/30/17 16:00 98.7 Nasal Cannula 2.00 05/30/17 15:00 110 24 103/63 (76) 100 Nasal Cannula 2.00 05/30/17 14:18 99.0 05/30/17 14:00 98 10 108/79 (89) 100 Nasal Cannula 2.00 05/30/17 13:48 101.0 05/30/17 13:00 119 11 119/72 (88) 100 Nasal Cannula 2.00 05/30/17 13:00 102 05/30/17 12:00 Nasal Cannula 2.00 05/30/17 12:00 120 21 100/67 (78) 98 Nasal Cannula 2.00 05/30/17 12:00 100.2 Nasal Cannula 2.00 05/30/17 10:00 93 11 108/66 (80) 99 Nasal Cannula 2.00 05/30/17 09:01 Nasal Cannula 2.00 05/30/17 09:00 122 11 122/74 (90) 99 Nasal Cannula 2.00 05/30/17 08:40 Nasal Cannula 2.00 05/30/17 08:00 93 10 121/70 (87) 100 Nasal Cannula 2.00 05/30/17 08:00 99.4 Nasal Cannula 2.00 05/30/17 07:02 102 05/30/17 07:00 102 10 115/63 (80) 100 Nasal Cannula 2.00 05/30/17 06:00 131 17 127/65 (85) 100 Nasal Cannula 2.00 I & O 05/31/17 07:00 Intake Total 1500 ml Output Total 2575 ml Balance -1075 ml Capillary Refill : General Appearance: Mild Distress Neck: Non Tender, Supple Respiratory: Normal Breath Sounds, No Accessory Muscle Use, No Respiratory Distress Cardiovascular: Tachycardia Gastrointestinal: non tender, soft, abnormal bowel sounds Extremity: Normal Capillary Refill, No Calf Tenderness Neurologic/Psychiatric: Alert, Oriented x3, No Motor/Sensory Deficits Results Lab Laboratory Tests 05/31/17 04:20: White Blood Count 13.4H, Red Blood Count 3.17L, Hemoglobin 9.6L, Hematocrit 29L , Mean Corpuscular Volume 93, Mean Corpuscular Hemoglobin 30, Mean Corpuscular Hemoglobin Concent 33, Red Cell Distribution Width 12.6, Platelet Count 427H, Mean Platelet Volume 9.4, Neutrophils (%) (Auto) 69, Lymphocytes (%) (Auto) 14, Monocytes (%) (Auto) 9, Eosinophils (%) (Auto) 8, Basophils (%) (Auto) 0, Neutrophils # (Auto) 9.3H, Lymphocytes # (Auto) 1.9, Monocytes # (Auto) 1.1H, Eosinophils # (Auto) 1.1H, Basophils # (Auto) 0.1, Sodium Level 138, Potassium Level 3.9, Chloride Level 99, Carbon Dioxide Level 28, Anion Gap 11, Blood Urea Nitrogen 4L, Creatinine 0.59L, Estimat Glomerular Filtration Rate > 60, BUN/ Creatinine Ratio 7, Glucose Level 112H, Calcium Level 8.7, Phosphorus Level 3.5 , Magnesium Level 2.0 Assessment/Plan Assessment/Plan Assess & Plan/Chief Complaint Thoracic Hyperkyphosis Scheruman's kyphosis Post-Op Ileus Plan: Up with PT Pain control Check KUB Continue bowel program Step Down Clinical Quality Measures DVT/VTE Risk/Contraindication: Risk Factor Score Per Nursin RFS Level Per Nursing on Admit: 4+=Very High BLANCA NYE MD May 31, 2017 5:51 am
[2017-05-31] MEDS: MAGNESIUM 1 GM/100 ML IVPB 100 ML IV SCH (06:00)
[2017-05-31] MEDS: KCL 20 MEQ TAB (K-DUR) PO SCH (06:00)
[2017-05-31] MEDS: POTASSIUM CL 10MEQ/50ML IVPB 50 ML IV SCH (06:00)
[2017-05-31] MEDS ORDERED: KCL 20 MEQ TAB (K-DUR) PO ONE (06:00)
[2017-05-31] MEDS: HYDROmorphone (DILAUDID) 2 MG TAB PO PRN ×4 (07:30→21:02)
--- NOTE | 2017-05-31 07:56 | Progress Note-Hospitalist ---
Subjective HPI/CC On Admission Date Seen by Provider: May 31, 2017 Time Seen by Provider: 07:20 Pt is a 27yoCF with no past medical history who was admitted for spinal fusion for kyphosis. We are consulted for medical management following surgery. She reports pain from her surgery but controlled with pain medicine. She is up in chair at time of bed. She developed a headache with sitting up but improved with pain medicine. She has no complaints at this time. Subjective/Events-last exam She reports continued pain. Fentanyl patch provided no relief (though removed yesterday afternoon and likely not given adequate trial). MS contin started, IV morphine providing the most relief so far. Objective Exam Vital Signs Vital Sign - Last 12Hours 05/27/17 05/27/17 08:36 16:40 Temp 98.7 Pulse 89 Resp 18 B/P (MAP) 124/74 (91) Pulse Ox 100 O2 Delivery Room Air O2 Flow Rate 10.00 Capillary Refill : General Appearance: No Apparent Distress, WD/WN Respiratory: Lungs Clear, No Accessory Muscle Use Cardiovascular: Regular Rate, Rhythm, No Murmur Back: Other (brace in place) Neurologic/Psychiatric: Alert, Oriented x3, Normal Mood/Affect Results/Procedures Lab Laboratory Tests 05/31/17 04:20 Assessment/Plan Assessment and Plan Assess & Plan/Chief Complaint kyphosis s/p spinal fusion Diagnosis/Problems Diagnosis/Problems (1) Kyphosis Status: Chronic Assessment & Plan: s/p spinal fusion Management per Primary PT/OT On PO Dilaudid along MS contin Morphine for breakthrough pain Qualifiers: Qualified Codes: M40.209 - Unspecified kyphosis, site unspecified (2) Leukocytosis Status: Acute Assessment & Plan: Likely due to surgery, improving still Febrile yesterday but no other signs of infections Will culture if recurs No signs of infection, davila out Received prophylactic ancef Monitor closely (3) Normocytic anemia Assessment & Plan: likely due to acute blood loss from surgery Trend (4) Prophylactic measure Assessment & Plan: Saline lock Reg diet SCDS - lovenox when ok with primary ILDEFONSO DOW MD May 31, 2017 7:56 am
--- NOTE | 2017-05-31 07:57 | Diagnostic Imaging Report ---
INDICATION: Hypoactive bowel sounds four days post spine surgery. TECHNIQUE: Supine and upright view of the abdomen 8:00 a.m. CORRELATION STUDY: None. FINDINGS: Thoracolumbar spinal fixation hardware present. There is moderate severity fecal loading within the proximal colon. A few gas-filled loops of small bowel are present. Definitive findings to suggest obstruction do not appear to be present. Cholecystectomy clips in the right upper quadrant. Drainage tubing over the right abdomen and spine. Spina bifida occulta defect, S1 level. IMPRESSION: Moderate fecal retention in the proximal colon. No evidence for large fecal impaction or other findings to suggest high-degree bowel obstruction. There may be mild additional ileus bowel gas pattern with a few gas-filled loops of small bowel. Dictated by: Dictated on workstation # [id number]
--- NOTE | 2017-05-31 08:03 | Diagnostic Imaging Report ---
INDICATION: Postoperative for back surgery. TECHNIQUE: Single view chest 4:39 a.m. CORRELATION STUDY: 05/30/2017 FINDINGS: The heart size, mediastinal configuration and pulmonary vascularity are within normal limits. No infiltrate. Nodular density over the left lung base but just above the diaphragm appears unchanged, may be actually overlying. No significant pneumothorax. Extensive thoracic spinal fixation hardware again demonstrated and generally stable. IMPRESSION: 1. Stable chest demonstrates no significant adverse interval change. Dictated by: Dictated on workstation # [id number]
[2017-05-31] MEDS: MULTIVIT W/MINERALS TAB (THERAGRAN M) PO SCH (09:20)
[2017-05-31] MEDS: FAMOTIDINE 20 MG (PEPCID) TABLET PO SCH ×2 (09:20→21:02)
[2017-05-31] MEDS: DOCUSATE SODIUM 100 MG (COLACE) CAP PO SCH ×2 (09:20→21:02)
[2017-05-31] MEDS: POLYETHYLENE GLYCOL 17 GM (MIRALAX) PACK PO SCH (09:21)
[2017-05-31] MEDS: BACITRACIN OINTMENT 28 GM TUBE TOP SCH ×2 (09:21→21:03)
[2017-05-31 09:23] VITALS: BP 110/73
--- NOTE | 2017-05-31 09:41 | Physical Therapy Daily Note ---
PT Daily Note-Current Subjective Patient states that she is feeling pretty loopy this morning. She repots being given a lot of pain medicine previous to her X-Rays about 20 minutes prior to PT entering the room. She states she is ready to get up and walk this a.m. Pain Numeric Pain Scale: 5-Moderate Pain Location Body Site: Back Comment: pain level diminished due to pain relieving medication Appearance Patient appears healthy. Patient is left post tx seated in recliner wiht call light in reach and spouse present. Mental Status Patient Orientation: Normal For Age Attachments: Carballo Catheter Transfers Functional [place] Measure 0=Not Assessed/NA 4=Minimal Assistance 1=Total Assistance 5=Supervision or Setup 2=Maximal Assistance 6=Modified [place] 3=Moderate Assistance 7=Complete IndependenceIRFPAI Quality Coding Scale 6 Independent with activity with or without an assistive device 5 Patient requires set up or clean up by helper. Patient completes activity by themselves 4 Supervision or touching assist (CGA). [place] provide cues , steadying assist 3 The helper provides less than half the effort to complete the activity 2 The helper provides more than half the effort to complete the activity 1 Dependent. The helper does all the effort to complete an activity 7 Patient refused to complete or attempt activity 9 The patient did not perform the activity before the current illness or injury 88 Not attempted due to Medical conditions or safety concerns Transfers (B, C, W/C) (FIM): 5 Sit to/from Stand: 5 Sit to/from stand is only transfer observed on this visit. Patient performs transfer safely with SBA from PT. Weight Bearing Right Lower Extremity: Right Weight Bearing/Tolerated Left Lower Extremity: Left Weight Bearing/Tolerated Gait Training Gait (FIM): 5 Distance: 500' Gait Level of Assist: 5 Gait Persons Needed: 1 Gait Assistive Device: FWW Patient ambulates safely in FWW with TLSO brace. Patient gait stride, pace, and distance has improved with every visit. Exercises Seated Therapy Exercises: Long arc quads, Hip flexion Seated Reps: 20 Assessment Current Status: Good Progress Patient is very motivated to recover and participate in PT. PT will continue therapeutic exercise and gait training per patient tolerance. PT Snf Goals Snf Goals PT Bundle Shaker Goals Time Frame: Jun 14, 2017 Transfers (B,C,W/C) (FIM): 4 Gait (FIM): 3 Gait distance (FIM): 3=150 ft Distance: 150' Gait Level of Assist: 5 Gait Assistive Device: FWW PT Plan Problem List Problem List: Activity Tolerance, Functional Strength, Safety, Balance, Gait Treatment/Plan Treatment Plan: Continue Plan of Care Treatment Plan: Bed Mobility, Education, Functional Activity Teodora, Functional Strength, Gait, Safety, Therapeutic Exercise, Transfers Treatment Duration: Jun 14, 2017 Frequency: 11 times per week Estimated Hrs Per Day: .5 hour per day Patient and/or Family Agrees t: Yes Time/GCodes Time In: 810 Time Out: 828 Total Billed Treatment Time: 18 Total Billed Treatment 1 visit FA 18 min CORINE JOSHUA PT May 31, 2017 09:41
[2017-05-31 11:36] VITALS: BP 121/69
--- NOTE | 2017-05-31 13:36 | Physical Therapy Daily Note ---
PT Daily Note-Current Subjective Patient states she has experienced more pain this p.m. because she has moved to oral pain medication and no longer is taking IV pain medication. She says she still wants to get up and walk and can work through the pain. Pain Numeric Pain Scale: 7 Location Body Site: Back Appearance Patient appears healthy. She is left post tx with call light and spouse in room. Mental Status Patient Orientation: Normal For Age Transfers Functional [place] Measure 0=Not Assessed/NA 4=Minimal Assistance 1=Total Assistance 5=Supervision or Setup 2=Maximal Assistance 6=Modified [place] 3=Moderate Assistance 7=Complete IndependenceIRFPAI Quality Coding Scale 6 Independent with activity with or without an assistive device 5 Patient requires set up or clean up by helper. Patient completes activity by themselves 4 Supervision or touching assist (CGA). [place] provide cues , steadying assist 3 The helper provides less than half the effort to complete the activity 2 The helper provides more than half the effort to complete the activity 1 Dependent. The helper does all the effort to complete an activity 7 Patient refused to complete or attempt activity 9 The patient did not perform the activity before the current illness or injury 88 Not attempted due to Medical conditions or safety concerns Transfers (B, C, W/C) (FIM): 5 Sit to/from Stand: 5 Sit to/from stand only transfer observed on this visit. Patient performs sit to stand with SBA from PT. Weight Bearing Right Lower Extremity: Right Weight Bearing/Tolerated Left Lower Extremity: Left Weight Bearing/Tolerated Gait Training Gait (FIM): 5 Distance: 500' Gait Level of Assist: 5 Gait Persons Needed: 1 Gait Assistive Device: FWW Patient ambulates safely in FWW with SBA. Exercises Seated Therapy Exercises: Long arc quads, Hip flexion Seated Reps: 20 Assessment Current Status: Good Progress Patient gait distance continues to increase. Patient is very motivated and agreeable to all modes of PT. PT will continue to progress patient interventions per her pain tolerance. PT Mcc Goals Balance Wheel Hand Filer Goals PT Balance Wheel Hand Filer Goals Time Frame: Jun 14, 2017 Transfers (B,C,W/C) (FIM): 4 Gait (FIM): 3 Gait distance (FIM): 3=150 ft Distance: 150' Gait Level of Assist: 5 Gait Assistive Device: FWW PT Plan Problem List Problem List: Activity Tolerance, Functional Strength, Safety, Balance, Gait Treatment/Plan Treatment Plan: Continue Plan of Care Treatment Plan: Bed Mobility, Education, Functional Activity Teodora, Functional Strength, Gait, Safety, Therapeutic Exercise, Transfers Treatment Duration: Jun 14, 2017 Frequency: 11 times per week Estimated Hrs Per Day: .5 hour per day Patient and/or Family Agrees t: Yes Time/GCodes Time In: 1305 Time Out: 1320 Total Billed Treatment Time: 15 Total Billed Treatment 1 visit FA 15 min CORINE JOSHUA PT May 31, 2017 13:36
--- NOTE | 2017-05-31 14:51 | Occupational Ther Daily Note ---
OT Current Status-Daily Note Subjective Pt seen in room, up in recliner, agreeable to OT. Pt tearful rating pain "at least 10/10" but did not want nursing intervention. Appearance Alert, cooperative Mental Status/Objective Functional [place] Measure 0=Not Assessed/NA 4=Minimal Assistance 1=Total Assistance 5=Supervision or Setup 2=Maximal Assistance 6=Modified [place] 3=Moderate Assistance 7=Complete [place] Other Treatment Pt provided with written information on energy conservation techniques. Discussed several ruiz principles, with pt verbal understanding. Pt did bilat UE exercise with hands together to help manage discomfort. Was able to achieve active shoulder flex to approx 90 degrees before it pulled too much on her back. had some difficulty fully extending elbows with combined shoulder flex, due to tightness and discomfort. Pt encouraged to do these two AROM ex/ stretches within her pain tolerance. Pt and verbalized understanding. Pt left up in recliner, all needs met. Education OT Patient Education: Energy conservation, Exercise program, Progress toward Goal/Update tx plan Teaching Recipient: Patient, Family Teaching Methods: Demonstration, Discussion Response to Teaching: Verbalize Understanding, Return Demonstration OT Short Term Goals Short Term Goals 1=Demonstrate adherence to instructed precautions during ADL tasks. 2=Patient will verbalize/demonstrate understanding of assistive devices/ modifications for ADL. 3=Patient will improve strength/tolerance for activity to enable patient to perform ADL's. OT Chcf Goals Chcf Goals Time Frame: Jun 04, 2017 Eating (FIM): 7 Grooming(FIM): 6 Bathing(FIM): 5 Upper Body Dressing(FIM): 5 Lower Body Dressing(FIM): 5 Toileting(FIM): 6 Toilet/Commode Transfer(FIM): 6 Shower Transfer(FIM): 5 Additional Goals: 1-Demonstrate ADL Tasks, 2-Verbalize Understanding, 3- ImproveStrength/Teodora 1=Demonstrate adherence to instructed precautions during ADL tasks. 2=Patient will verbalize/demonstrate understanding of assistive devices/ modifications for ADL. 3=Patient will improve strength/tolerance for activity to enable patient to perform ADL's. OT Education/Plan Problem List/Assessment Pt would benefit from skilled OT to increase her independence in basic self care to allow her to safely return to her home and to decrease caregiver burden Discharge Recommendations Plan/Recommendations: Continue POC Treatment Plan/Plan of Care Patient would benefit from OT for education, treatment and training to promote independence in ADL's, mobility, safety and/or upper extremity function for ADL' s. Plan of Care: ADL Retraining, Functional Mobility, UE Funct Exercise/Act Treatment Duration: Jun 04, 2017 Frequency: 5 times per week Estimated Hrs Per Day: .5 hour per day Agreement: Yes Rehab Potential: Good Time/GCodes Start Time: 12:30 Stop Time: 12:43 Total Time Billed (hr/min): 13 Billed Treatment Time visit, 8 minutes exercise, 5 minutes ADL MARION [place] OT May 31, 2017 14:51
[2017-05-31 16:07] VITALS: BP 117/76
[2017-05-31] MEDS: MILK OF MAGNESIA 400 MG/5 ML 30 ML UDC PO PRN (17:32)
[2017-05-31] MEDS: diphenhydrAMINE 25 MG TAB (BENADRYL) PO PRN (17:33)
[2017-05-31 20:00] VITALS: BP 127/76
[2017-06-01] VITALS: BP 115/62
[2017-06-01] MEDS: morphine ER 30 MG (MS CONTIN) TAB PO SCH ×2 (00:18→08:14)
[2017-06-01] MEDS: morphine INJ 10 MG/ML 1ML (SYR OR VIAL) IVP PRN ×3 (02:12→07:07)
[2017-06-01] MEDS: HYDROmorphone (DILAUDID) 2 MG TAB PO PRN ×5 (02:57→22:25)
[2017-06-01 04:00] VITALS: BP 119/60
[2017-06-01] MEDS: MULTIVIT W/MINERALS TAB (THERAGRAN M) PO SCH (06:03)
[2017-06-01] MEDS: POLYETHYLENE GLYCOL 17 GM (MIRALAX) PACK PO SCH (06:03)
[2017-06-01 08:10] VITALS: BP 105/73
[2017-06-01] MEDS: DIAZEPAM 5 MG (VALIUM) TABLET PO PRN ×2 (08:13→16:14)
[2017-06-01] MEDS: DOCUSATE SODIUM 100 MG (COLACE) CAP PO SCH ×2 (08:13→22:02)
[2017-06-01] MEDS: MILK OF MAGNESIA 400 MG/5 ML 30 ML UDC PO PRN (08:13)
[2017-06-01] MEDS: BISACODYL 5 MG (DULCOLAX) TABLET PO PRN (08:14)
[2017-06-01] MEDS: FAMOTIDINE 20 MG (PEPCID) TABLET PO SCH ×2 (08:14→22:01)
[2017-06-01] MEDS ORDERED: fentaNYL PATCH 50 MCG (DURAGESIC) TD SCH (08:30)
--- NOTE | 2017-06-01 09:33 | Progress Note (SOAP) ---
Subjective Date Seen by Provider: Jun 01, 2017 Time Seen by Provider: 09:29 Subjective/Events-last exam Patient states that she is feeling much better POD #5, VSS, afebrile Positive Flatus Review of Systems General: No Chills Pulmonary: No Cough Cardiovascular: No: Chest Pain Gastrointestinal: No: Nausea, Vomiting, Abdominal Pain Musculoskeletal: back pain, No: leg pain Neurological: No: Weakness, Numbness, Incoordination Objective Exam Vital Signs Date Time Temp Pulse Resp B/P (MAP) Pulse Ox O2 Delivery O2 Flow Rate FiO2 06/01/17 04:00 97.7 107 20 119/60 (79) 96 Room Air 06/01/17 00:00 Room Air 06/01/17 00:00 97.9 94 16 115/62 (79) 98 Room Air 05/31/17 20:14 Room Air 05/31/17 20:00 98.3 113 22 127/76 (93) 99 Room Air 05/31/17 16:07 96.9 90 20 117/76 (90) 98 Room Air 05/31/17 16:00 Room Air 05/31/17 12:00 Room Air 05/31/17 11:36 97.0 92 16 121/69 (86) 100 Room Air I & O 06/01/17 07:00 Intake Total 1950 ml Output Total 1555 ml Balance 395 ml Capillary Refill : General Appearance: No Apparent Distress, WD/WN Neck: Full Range of Motion Cardiovascular: No Edema Gastrointestinal: non tender, soft Extremity: Normal Capillary Refill, Non Tender, No Calf Tenderness Neurologic/Psychiatric: Alert, Oriented x3, No Motor/Sensory Deficits, Normal Mood/Affect, director of retention II-XII Norm as Tested Skin: Normal Color, Warm/Dry Assessment/Plan Assessment/Plan Assess & Plan/Chief Complaint Thoracic kyphosis with sagittal imbalance S/P T4-L2 PSF with T10 PSO Transfer to floor DC LINDA ambulate attempt to hold IV morphine Decrease oral morphine Reattempt fentanyl patch Clinical Quality Measures DVT/VTE Risk/Contraindication: Risk Factor Score Per Nursin RFS Level Per Nursing on Admit: 4+=Very High MANUEL CARO Jun 01, 2017 09:33
--- NOTE | 2017-06-01 11:27 | Physical Therapy Daily Note ---
PT Daily Note-Current Subjective Pt up in room with spouse, agreeable. No pain rating provided but states, "It's there but it's manageable" Mental Status Patient Orientation: Person, Place, Time, Situation Transfers Functional [place] Measure 0=Not Assessed/NA 4=Minimal Assistance 1=Total Assistance 5=Supervision or Setup 2=Maximal Assistance 6=Modified [place] 3=Moderate Assistance 7=Complete IndependenceIRFPAI Quality Coding Scale 6 Independent with activity with or without an assistive device 5 Patient requires set up or clean up by helper. Patient completes activity by themselves 4 Supervision or touching assist (CGA). [place] provide cues , steadying assist 3 The helper provides less than half the effort to complete the activity 2 The helper provides more than half the effort to complete the activity 1 Dependent. The helper does all the effort to complete an activity 7 Patient refused to complete or attempt activity 9 The patient did not perform the activity before the current illness or injury 88 Not attempted due to Medical conditions or safety concerns Weight Bearing Right Lower Extremity: Right Weight Bearing/Tolerated Left Lower Extremity: Left Weight Bearing/Tolerated Gait Training Gait (FIM): 6 Distance (FIM): 3=150 ft Distance: 800 Gait Level of Assist: 6 Gait Persons Needed: 0 Gait Assistive Device: FWW Pt ambulates with slow but steady gait, TLSO in place. Treatments Ambulation with FWW. Pt returned to up in room post session. Pt has been walking multiple times through the day and night with spouse. Assessment Current Status: Good Progress Pt tolerated well. Slow but safe gait. PT Solar Applications Development Engineer Goals Solar Applications Development Engineer Goals PT Solar Applications Development Engineer Goals Time Frame: Jun 14, 2017 Transfers (B,C,W/C) (FIM): 4 Gait (FIM): 3 Gait distance (FIM): 3=150 ft Distance: 150' Gait Level of Assist: 5 Gait Assistive Device: FWW PT Plan Problem List Problem List: Activity Tolerance, Functional Strength, Balance, Gait, Transfer , Bed Mobility Treatment/Plan Treatment Plan: Continue Plan of Care Treatment Plan: Bed Mobility, Education, Functional Activity Teodora, Functional Strength, Gait, Safety, Therapeutic Exercise, Transfers Treatment Duration: Jun 14, 2017 Frequency: 11 times per week Estimated Hrs Per Day: .5 hour per day Patient and/or Family Agrees t: Yes Time/GCodes Time In: 1027 Time Out: 1047 Total Billed Treatment Time: 20 Total Billed Treatment 1, FA x 20 G Codes Necessary: FORTINO La DPCuco Jun 01, 2017 11:27
[2017-06-01] MEDS: BACITRACIN OINTMENT 28 GM TUBE TOP SCH ×2 (11:33→22:03)
[2017-06-01 15:23] VITALS: BP 104/75
[2017-06-01] MEDS: morphine ER 15 MG (MS CONTIN) TAB PO SCH (17:28)
[2017-06-01 19:23] VITALS: BP 121/76
[2017-06-02] VITALS: BP 129/58
[2017-06-02] MEDS: morphine ER 15 MG (MS CONTIN) TAB PO SCH ×2 (01:15→08:30)
[2017-06-02] MEDS: DIAZEPAM 5 MG (VALIUM) TABLET PO PRN ×2 (01:20→09:38)
[2017-06-02 04:00] VITALS: BP 94/59
[2017-06-02 08:00] VITALS: BP 94/46
[2017-06-02] MEDS: FAMOTIDINE 20 MG (PEPCID) TABLET PO SCH (08:30)
[2017-06-02] MEDS: DOCUSATE SODIUM 100 MG (COLACE) CAP PO SCH (08:30)
[2017-06-02] MEDS: HYDROmorphone (DILAUDID) 2 MG TAB PO PRN ×2 (08:30→13:24)
[2017-06-02] MEDS: MULTIVIT W/MINERALS TAB (THERAGRAN M) PO SCH (08:30)
[2017-06-02] MEDS: POLYETHYLENE GLYCOL 17 GM (MIRALAX) PACK PO SCH (08:30)
[2017-06-02] MEDS: BACITRACIN OINTMENT 28 GM TUBE TOP SCH (08:31)
--- NOTE | 2017-06-02 10:56 | Progress Note-Hospitalist ---
Subjective HPI/CC On Admission Date Seen by Provider: Jun 02, 2017 Time Seen by Provider: 10:51 Pt is a 27yoCF with no past medical history who was admitted for spinal fusion for kyphosis. We are consulted for medical management following surgery. She reports pain from her surgery but controlled with pain medicine. She is up in chair at time of bed. She developed a headache with sitting up but improved with pain medicine. She has no complaints at this time. Subjective/Events-last exam Patient reports doing well. Off IV pain meds. Would like to DC today. will be off for 3 weeks to help care for her at home. Objective Exam Vital Signs Vital Sign - Last 12Hours 05/27/17 05/27/17 08:36 16:40 Temp 98.7 Pulse 89 Resp 18 B/P (MAP) 124/74 (91) Pulse Ox 100 O2 Delivery Room Air O2 Flow Rate 10.00 Capillary Refill : General Appearance: No Apparent Distress, WD/WN Respiratory: Lungs Clear, Normal Breath Sounds, No Accessory Muscle Use Cardiovascular: Regular Rate, Rhythm, No JVD, No Murmur Gastrointestinal: Normal Bowel Sounds, Non Tender, Soft Neurologic/Psychiatric: Alert, Oriented x3, Normal Mood/Affect Assessment/Plan Assessment and Plan Assess & Plan/Chief Complaint kyphosis s/p spinal fusion Diagnosis/Problems Diagnosis/Problems (1) Kyphosis Status: Chronic Assessment & Plan: s/p spinal fusion Management per Primary PT/OT On PO Dilaudid along MS contin and fentanyl patch Qualifiers: Qualified Codes: M40.209 - Unspecified kyphosis, site unspecified (2) Leukocytosis Status: Acute Assessment & Plan: Likely due to surgery No signs of infection, davila out Received prophylactic ancef (3) Normocytic anemia Assessment & Plan: likely due to acute blood loss from surgery (4) Prophylactic measure Assessment & Plan: Okay to DC from medical point of view ILDEFONSO DOW MD Jun 02, 2017 10:56 am
[2017-06-02 12:00] VITALS: BP 140/64
--- NOTE | 2017-06-02 13:01 | Progress Note (SOAP) ---
Subjective Date Seen by Provider: Jun 02, 2017 Time Seen by Provider: 12:59 Subjective/Events-last exam Doing better, wants to go home. Objective Exam Vital Signs Date Time Temp Pulse Resp B/P (MAP) Pulse Ox O2 Delivery O2 Flow Rate FiO2 06/02/17 09:00 97 Room Air 06/02/17 08:00 98.8 98 20 94/46 (62) 97 Room Air 06/02/17 04:00 99.3 93 20 94/59 (71) 98 Room Air 06/02/17 00:00 98.9 107 20 129/58 (81) 99 Room Air 06/01/17 20:00 97 Room Air 06/01/17 19:23 96.7 108 14 121/76 (91) 100 Room Air 06/01/17 15:23 96.7 105 16 104/75 (85) 99 Room Air 06/01/17 14:50 97 Room Air I & O 06/02/17 07:00 Intake Total 2260 ml Output Total 30 ml Balance 2230 ml Capillary Refill : General Appearance: No Apparent Distress Respiratory: Normal Breath Sounds, No Accessory Muscle Use, No Respiratory Distress Cardiovascular: Regular Rate, Rhythm Gastrointestinal: non tender, soft Extremity: Normal Capillary Refill, No Calf Tenderness Neurologic/Psychiatric: Alert, Oriented x3, No Motor/Sensory Deficits Skin: Normal Color, Warm/Dry Lymphatic: No Adenopathy Assessment/Plan Assessment/Plan Assess & Plan/Chief Complaint Thoracic Hyperkyphosis Scheruman's kyphosis Plan: d/c home instructions given Clinical Quality Measures DVT/VTE Risk/Contraindication: Risk Factor Score Per Nursin RFS Level Per Nursing on Admit: 4+=Very High BLANCA NYE MD Jun 02, 2017 1:01 pm
--- NOTE | 2017-06-02 13:08 | Discharge Summary ---
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 Labs Laboratory Tests 05/31/17 04:20: White Blood Count 13.4H, Red Blood Count 3.17L, Hemoglobin 9.6L, Hematocrit 29L , Platelet Count 427H, Neutrophils # (Auto) 9.3H, Monocytes # (Auto) 1.1H, Eosinophils # (Auto) 1.1H, Blood Urea Nitrogen 4L, Creatinine 0.59L, Glucose Level 112H Procedures T4-L2 PSF with T10 PSO Discharge Physical Examination Allergies: Coded Allergies: No Known Drug Allergies (Unverified , 05/22/17) Vitals & I&Os Vital Signs Date Time Temp Pulse Resp B/P (MAP) Pulse Ox O2 Delivery O2 Flow Rate FiO2 06/02/17 09:00 97 Room Air 06/02/17 08:00 98.8 98 20 94/46 (62) 05/31/17 08:00 General Appearance: Alert, Oriented X3, Cooperative Respiratory: Normal Air Movement Cardiovascular: Regular Rate Abdominal: Soft Discharge Home Medications Reviewed and agree with Discharge Medication list on patient's Discharge Instruction sheet Instructions to Patient/Family Please see electronic discharge instructions given to patient. Clinical Quality Measures DVT/VTE Risk/Contraindication: Risk Factor Score Per Nursin RFS Level Per Nursing on Admit: 4+=Very High BLANCA NYE MD Jun 02, 2017 1:08 pm
[2017-06-02] MEDS ORDERED: DIAZ5TAB3 PO (13:11)
[2017-06-02] MEDS ORDERED: HYDR2TAB6 PO (13:11)
[2017-06-02] MEDS ORDERED: BACL10TA PO (13:11)
[2017-06-02] MEDS ORDERED: FENT1PAT9 TD (13:11)
[2017-06-02 14:10] VITALS: BP 140/64
[2017-06-04] MEDS ORDERED: FENTANYL PATCH REMOVAL TP SCH (08:29)
== END 2017-06-02 14:15 | disposition home or self-care (01) | DRG 457 ==
LOC: EDSTATUS 07:30 → 4TH 07:40 → SURG 07:41 → ICU 15:40 → 4TH 06-01 14:13
PROVIDERS: ADMIT Orthopaedic Surgery Orthopaedic Surgery of the Spine; ATTEND Orthopaedic Surgery Orthopaedic Surgery of the Spine
PROC: 0RGA071 Fusion of Thoracolumbar Vertebral Joint with Autologous Tissue Substitute, Posterior Approach, Posterior Column, Open Approach (ICD-10-PCS; 2017-05-27)
PROC: 0SG0071 Fusion of Lumbar Vertebral Joint with Autologous Tissue Substitute, Posterior Approach, Posterior Column, Open Approach (ICD-10-PCS; 2017-05-27)
PROC: 0RS Upper Joints, Reposition (ICD-10-PCS; 2017-05-27)
PROC: 0RG8071 Fusion of 8 or more Thoracic Vertebral Joints with Autologous Tissue Substitute, Posterior Approach, Posterior Column, Open Approach (ICD-10-PCS; principal; 2017-05-27 09:43)
DX: M40.294 Other kyphosis, thoracic region (principal); M42.04 Juvenile osteochondrosis of spine, thoracic region; E83.42 Hypomagnesemia; D64.9 Anemia, unspecified; K56.7 Ileus, unspecified
CPT/HCPCS: 36415; 71010; 72082; 74020; 80048; 80053; 83735; 84100; 84703; 85025; 85027; 86850; 86900; 86901; 86920; 94664